=== PATIENT | female | born 2000 | race Caucasian/White ===

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

== ENCOUNTER → 2018-01-06 | Outpatient (CLI) | payer OTHER ==
[2018-01-06 15:10] VITALS: BP 113/73; PULSE 59; RESP 16; TEMP 98; BMI 34.3
--- NOTE | 2018-01-06 15:15 | P.PN ---
Progress Note - Text Progress Note Date: 01/06/18 The patient resents for results of the FNA in her right breast. The FNA was nondiagnostic showing only blood and adipose tissue. The patient states the area of concern has remained area is only tender. The patient has been decreasing her caffeine intake Physical exam: The area that was originally seen in the 9 o'clock position of the right breast does indeed fill slightly smaller and less firm Examination is limited to the right breast Impression: 1. Decreased area of nodularity right breast 2. The patient has stayed away from caffeine and this seems to be making a difference for her related to fibrocystic changes in her breast Plan: 1. Conservative management with repeat examination in 3 months time 2. The patient notices anything of concern she will be seen sooner 3. Continue to abstain from caffeine The following options were discussed with the patient. Option 1. is to continue with conservative management option 2. is attempt biopsy of the area with a core biopsy needle option 3. is operative resection. Risks and benefits of all options are discussed with the patient. I have recommended close surveillance. Cc: Dr. Maile Muro
== END ==
LOC: WWCWWP 14:42
PROVIDERS: ATTEND Surgery
DX: Z53.9 Procedure and treatment not carried out, unspecified reason (principal)

== ENCOUNTER 2018-08-29 13:44 | Emergency (ER) | payer OTHER ==
[2018-08-29 13:48] VITALS: BP 122/76; PULSE 79; RESP 18; TEMP 97.9
--- NOTE | 2018-08-29 14:39 | ED ---
General Adult HPI - General Chief complaint: Recheck/Abnormal Lab/Rx Stated complaint: wants test Time Seen by Provider: 08/29/18 13:49 Source: patient, RN notes reviewed Mode of arrival: ambulatory Limitations: no limitations - History of Present Illness Initial comments: 18-year-old female presents emergency Department requesting test. Patient states she believes she is . She's not had her mental cycle. Patient does have underlying PC last is had spotting for the last 2 months. She does not current a seen EMT/DISPATCHER. Patient was on control but stopped this. Denies any vaginal discharge. Patient denies any prior pregnancies. She states that she has intermittent nausea and intermittent cramping but has no abdominal pain at this time. No dysuria - Related Data Home Medications Medication Instructions Recorded Confirmed No Known Home Medications 08/29/18 08/29/18 Allergies Allergy/AdvReac Type Severity Reaction Status Date / Time No Known Allergies Allergy Verified 08/29/18 13:48 Review of Systems ROS Statement: Those systems with pertinent positive or pertinent negative responses have been documented in the HPI. ROS Other: All systems not noted in ROS Statement are negative. Past Medical History Past Medical History: No Reported History History of Any Multi-Drug Resistant Organisms: None Reported Past Surgical History: No Surgical Hx Reported Past Psychological History: No Psychological Hx Reported Smoking Status: Never smoker Past Alcohol Use History: None Reported Past Drug Use History: None Reported - Past Family History Father Family Medical History: Diabetes Mellitus Mother Family Medical History: No Reported History General Exam Limitations: no limitations General appearance: alert, in no apparent distress Head exam: Present: atraumatic, normocephalic, normal inspection Eye exam: Present: normal appearance, PERRL, EOMI. Absent: scleral icterus, conjunctival injection, periorbital swelling Respiratory exam: Present: normal lung sounds bilaterally. Absent: respiratory distress, wheezes, rales, rhonchi, stridor Cardiovascular Exam: Present: regular rate, normal rhythm, normal heart sounds. Absent: systolic murmur, diastolic murmur, rubs, gallop, clicks GI/Abdominal exam: Present: soft, normal bowel sounds. Absent: distended, tenderness, guarding, rebound, rigid Neurological exam: Present: alert, oriented X3, CN II-XII intact Skin exam: Present: warm, dry, intact, normal color. Absent: rash Course Vital Signs 08/29/18 13:46 Temperature 97.9 F Pulse Rate 79 Respiratory 18 Rate Blood Pressure 122/76 O2 Sat by Pulse 97 Oximetry Medical Decision Making - Medical Decision Making 18-year-old female presented for multiple complaints. Primary complaint want a test. She does have negative test is felt the over symptoms related to a PCOS that she is to follow-up with EMT/DISPATCHER. We discussed that she was on control and symptoms were recommended at that time patient will follow-up with PCP or EMT/DISPATCHER. - Lab Data Lab Results 08/29/18 08/29/18 Range/Units 14:00 14:00 Urine Color Light Yellow Urine Appearance Clear (Clear) Urine pH 7.5 (5.0-8.0) Ur Specific [place] 1.007 (1.001-1.035) Urine Protein Negative (Negative) Urine Glucose (UA) Negative (Negative) Urine Ketones Negative (Negative) Urine Blood Moderate H (Negative) Urine Nitrite Negative (Negative) Urine Bilirubin Negative (Negative) Urine Urobilinogen <2.0 (<2.0) mg/dL Ur Leukocyte Esterase Negative (Negative) Urine RBC 23 H (0-5) /hpf Urine WBC 4 (0-5) /hpf Ur Squamous Epith Cells 2 (0-4) /hpf Amorphous Sediment Rare H (None) /hpf Urine Bacteria Rare H (None) /hpf Urine Mucus Rare H (None) /hpf Urine HCG, Qual Not Detected (Not Detectd) Disposition Clinical Impression: PCOS (polycystic ovarian syndrome), Negative test Disposition: HOME SELF-CARE Condition: Stable Instructions (If sedation given, give patient instructions): Dysfunctional Uterine Bleeding (ED) Additional Instructions: Please return to the Emergency Department if symptoms worsen or any other concerns. Is patient prescribed a controlled substance at d/c from ED?: No Referrals: Stefano Muro DO [Primary Care Provider] - 1-2 days Time of Disposition: 15:14
[2018-08-29 15:03] LABS: Amorphous Sediment,Urine Rare /hpf; Appearance,Urine Clear (Clear); Bilirubin,Urine Negative (Negative); Blood,Urine Moderate (Negative); Color,Urine Light Yellow; Glucose,Urine (UA) Negative (Negative); Ketones,Urine Negative (Negative); Leukocyte Esterase,Urine Negative (Negative); Mucus,Urine Rare /hpf; Nitrite,Urine Negative (Negative); PH, Urine 7.5 (5.0-8.0); Protein,Urine Negative (Negative); RBC,Urine 23 /hpf (0-5); Specific Gravity,Urine 1.007 (1.001-1.035); Squamous Epithelial Cell,Urine 2 /hpf (0-4); Urobilinogen,Urine <2.0 mg/dL (<2.0)
[2018-08-29 15:09] LABS: Bacteria,Urine Rare /hpf
== END 2018-08-29 15:31 | disposition home or self-care (01) ==
LOC: EC 13:44
DX: E28.2 Polycystic ovarian syndrome (principal); Z32.02 Encounter for pregnancy test, result negative; R11.0 Nausea
CPT/HCPCS: 81001; 81025; 99283

== ENCOUNTER → 2020-04-23 | Outpatient (CLI) | payer OTHER | END | disposition home or self-care (01) | LOC: LABWHC1 13:53 | PROVIDERS: ATTEND Obstetrics & Gynecology | DX: O20.0 Threatened abortion (principal) | CPT/HCPCS: 36415; 84702; 86850; 86900; 86901 ==

== ENCOUNTER → 2020-04-24 | Outpatient (CLI) | payer OTHER ==
--- NOTE | 2020-04-24 12:33 | US ---
EXAMINATION TYPE: Transabdominal DATE OF EXAM: 04/24/2020 10:53 AM COMPARISON: NONE CLINICAL HISTORY: 046.91 Bleeding and spotting 1st trimester. Bleeding x 1 day, 1 EXAM PERFORMED: Transvaginal (TV) and Transabdominal (TA) EXAM MEASUREMENTS: GESTATIONAL AGE / DATING Physician Established: Not established yet Dates by LMP: Unknown Dates by First Scan: This is 1st scan Dates by Current Scan for: ( 9 weeks/2 days) EDC: 11/25/2020 MATERNAL ANATOMY Uterus: 12.5 x 4.9 x 6.7cm Right Ovary: 3.2 x 2.0 x 2.3cm Left Ovary: 3.0 x 1.7 x 2.7cm Post CDS / Adnexa: small amount of free fluid Presence of free fluid: yes Presence of corpus luteal cyst: not seen Presence of subchorionic bleed: yes - 1.9 x 0.8 x 2.1cm GESTATION / SURVEY CRL: 2.5cm (9 weeks/2 days) Yolk Sac (normal less than 6mm): 4.0mm Heart Rate: 172 bpm Rhythm: Normal IUP: Viable IUP Date of LMP: Unknown Beta HcG (if available): Not available at time of exam IMPRESSION: 1. Single intrauterine gestation estimated at 9 weeks 2 days gestation based on the crown-rump length . Cardiac activity measures 172 bpm was observed during the study.
== END | disposition home or self-care (01) ==
LOC: RADUSWWP 10:13
PROVIDERS: ATTEND Obstetrics & Gynecology
DX: O46.91 Antepartum hemorrhage, unspecified, first trimester (principal); Z3A.09 9 weeks gestation of pregnancy
CPT/HCPCS: 76801; 76817

== ENCOUNTER 2020-10-23 20:11 | Emergency (ER) | payer OTHER ==
[2020-10-23 20:35] VITALS: RESP 18
[2020-10-23] MEDS ORDERED: SODIUM CHLORIDE 0.9% 500 ML 500 ML IV STA (20:47)
[2020-10-23] MEDS ORDERED: ONDANSETRON 4 MG/2 ML VIAL IVP STA (20:47)
--- NOTE | 2020-10-23 21:23 | ED ---
General Adult HPI - General Chief complaint: Weakness Stated complaint: flu like tiff, 36 weeks Time Seen by Provider: 10/23/20 20:48 Source: patient Mode of arrival: ambulatory - History of Present Illness Initial comments: This patient is a 20-year-old woman presenting to be evaluated for constellation of symptoms is been going on 2 days now. Patient has had some nausea and states she is not tolerating oral intake. She is having some generalized fatigue. She has had some myalgias and she is complaining of low abdominal and pelvic cramping that she states feel like contractions. She is proximally 36 weeks . She is not having any vaginal bleeding or fluid discharge. She notes that there've been decreased movements last night and into today. She states she had gone to the labor and delivery unit and was sent down here out of concerns she may have coronavirus. Patient has not had fever or chills. No chest pain, coughing, dyspnea. She states she had tested negative last week. Onset/Timin -: days(s) Location: abdomen, pelvis Radiation: non-radiation Quality: other (Cramping) Consistency: intermittent Improves with: none Worsens with: none Associated Symptoms: denies other symptoms Treatments Prior to Arrival: none - Related Data Previous Rx's Medication Instructions Recorded Amoxicillin 500 mg PO Q8H #21 capsule 10/23/20 Allergies Allergy/AdvReac Type Severity Reaction Status Date / Time No Known Allergies Allergy Verified 10/23/20 22:38 Review of Systems ROS Statement: Those systems with pertinent positive or pertinent negative responses have been documented in the HPI. ROS Other: All systems not noted in ROS Statement are negative. Constitutional: Reports: weakness. Denies: fever, chills Respiratory: Denies: cough, dyspnea, wheezes Cardiovascular: Denies: chest pain, palpitations, orthopnea, edema, syncope Gastrointestinal: Reports: abdominal pain, nausea, vomiting. Denies: hematemesis, melena, hematochezia Genitourinary: Denies: dysuria, hematuria, discharge, abnormal menses Musculoskeletal: Reports: myalgia. Denies: back pain Skin: Denies: rash Neurological: Denies: headache, weakness, numbness Past Medical History Past Medical History: No Reported History History of Any Multi-Drug Resistant Organisms: None Reported Past Surgical History: No Surgical Hx Reported Past Psychological History: No Psychological Hx Reported Smoking Status: Former smoker Past Alcohol Use History: None Reported Past Drug Use History: None Reported - Past Family History Father Family Medical History: Diabetes Mellitus Mother Family Medical History: No Reported History General Exam General appearance: alert, in no apparent distress Head exam: Present: atraumatic, normocephalic Eye exam: Present: normal appearance. Absent: scleral icterus, conjunctival injection ENT exam: Present: normal oropharynx Respiratory exam: Present: normal lung sounds bilaterally. Absent: respiratory distress, wheezes, rales, rhonchi, stridor Cardiovascular Exam: Present: regular rate, normal rhythm, normal heart sounds. Absent: systolic murmur, diastolic murmur, rubs, gallop GI/Abdominal exam: Present: soft, mass (Palpable fundus without tenderness). Absent: distended, tenderness, guarding, rebound, rigid, pulsatile mass, hernia Extremities exam: Present: normal inspection, normal capillary refill. Absent: pedal edema, calf tenderness Back exam: Present: normal inspection. Absent: CVA tenderness (R), CVA te nderness (L) Neurological exam: Present: alert Skin exam: Present: warm, dry, intact, normal color. Absent: rash Course Vital Signs 10/23/20 10/23/20 10/23/20 20:30 21:49 23:38 Temperature 98.2 F 98.0 F Pulse Rate 68 64 54 L Respiratory 18 18 18 Rate Blood Pressure 115/70 112/68 116/62 O2 Sat by Pulse 98 98 99 Oximetry Medical Decision Making - Lab Data Result diagrams: 10/23/20 21:29 10/23/20 21:29 Lab Results 10/23/20 10/23/20 10/23/20 Range/Units 21:29 21:29 21:29 WBC 10.7 H (3.8-10.6) k/uL RBC 4.03 (3.80-5.40) m/uL Hgb 12.4 (11.4-16.0) gm/dL Hct 36.7 (34.0-46.0) % MCV 91.0 (80.0-100.0) fL MCH 30.8 (25.0-35.0) pg MCHC 33.9 (31.0-37.0) g/dL RDW 12.4 (11.5-15.5) % Plt Count 389 (150-450) k/uL MPV 7.6 Neutrophils % 70 % Lymphocytes % 22 % Monocytes % 5 % Eosinophils % 1 % Basophils % 0 % Neutrophils # 7.5 (1.3-7.7) k/uL Lymphocytes # 2.3 (1.0-4.8) k/uL Monocytes # 0.6 (0-1.0) k/uL Eosinophils # 0.1 (0-0.7) k/uL Basophils # 0.0 (0-0.2) k/uL Sodium 133 L (137-145) mmol/L Potassium 4.2 (3.5-5.1) mmol/L Chloride 106 (98-107) mmol/L Carbon Dioxide 20 L (22-30) mmol/L Anion Gap 7 mmol/L BUN 4 L (7-17) mg/dL Creatinine 0.44 L (0.52-1.04) mg/dL Est GFR (CKD-EPI)AfAm >90 (>60 ml/min/1.73 sqM) Est GFR (CKD-EPI)NonAf >90 (>60 ml/min/1.73 sqM) Glucose 82 (74-99) mg/dL Calcium 9.4 (8.4-10.2) mg/dL Total Bilirubin 0.4 (0.2-1.3) mg/dL AST 22 (14-36) U/L ALT 11 (4-34) U/L Alkaline Phosphatase 182 H (38-126) U/L Total Protein 6.8 (6.3-8.2) g/dL Albumin 3.8 (3.5-5.0) g/dL Urine Color Urine Appearance (Clear) Urine pH (5.0-8.0) Ur Specific [place] (1.001-1.035) Urine Protein (Negative) Urine Glucose (UA) (Negative) Urine Ketones (Negative) Urine Blood (Negative) Urine Nitrite (Negative) Urine Bilirubin (Negative) Urine Urobilinogen (<2.0) mg/dL Ur Leukocyte Esterase (Negative) Urine RBC (0-5) /hpf Urine WBC (0-5) /hpf Ur Squamous Epith Cells (0-4) /hpf Urine Bacteria (None) /hpf Urine Mucus (None) /hpf Coronavirus (PCR) Not Detected (Not Detectd) 10/23/20 Range/Units 21:48 WBC (3.8-10.6) k/uL RBC (3.80-5.40) m/uL Hgb (11.4-16.0) gm/dL Hct (34.0-46.0) % MCV (80.0-100.0) fL MCH (25.0-35.0) pg MCHC (31.0-37.0) g/dL RDW (11.5-15.5) % Plt Count (150-450) k/uL MPV Neutrophils % % Lymphocytes % % Monocytes % % Eosinophils % % Basophils % % Neutrophils # (1.3-7.7) k/uL Lymphocytes # (1.0-4.8) k/uL Monocytes # (0-1.0) k/uL Eosinophils # (0-0.7) k/uL Basophils # (0-0.2) k/uL Sodium (137-145) mmol/L Potassium (3.5-5.1) mmol/L Chloride (98-107) mmol/L Carbon Dioxide (22-30) mmol/L Anion Gap mmol/L BUN (7-17) mg/dL Creatinine (0.52-1.04) mg/dL Est GFR (CKD-EPI)AfAm (>60 ml/min/1.73 sqM) Est GFR (CKD-EPI)NonAf (>60 ml/min/1.73 sqM) Glucose (74-99) mg/dL Calcium (8.4-10.2) mg/dL Total Bilirubin (0.2-1.3) mg/dL AST (14-36) U/L ALT (4-34) U/L Alkaline Phosphatase (38-126) U/L Total Protein (6.3-8.2) g/dL Albumin (3.5-5.0) g/dL Urine Color Light Yellow Urine Appearance Cloudy H (Clear) Urine pH 7.5 (5.0-8.0) Ur Specific [place] 1.008 (1.001-1.035) Urine Protein Negative (Negative) Urine Glucose (UA) Negative (Negative) Urine Ketones 1+ H (Negative) Urine Blood Negative (Negative) Urine Nitrite Negative (Negative) Urine Bilirubin Negative (Negative) Urine Urobilinogen <2.0 (<2.0) mg/dL Ur Leukocyte Esterase Trace H (Negative) Urine RBC <1 (0-5) /hpf Urine WBC 13 H (0-5) /hpf Ur Squamous Epith Cells 8 H (0-4) /hpf Urine Bacteria Occasional H (None) /hpf Urine Mucus Rare H (None) /hpf Coronavirus (PCR) (Not Detectd) Disposition Clinical Impression: Urinary tract infection Disposition: HOME SELF-CARE Condition: Fair Prescriptions: Amoxicillin 500 mg PO Q8H #21 capsule Is patient prescribed a controlled substance at d/c from ED?: No Referrals: Omer Ortega MD [Primary Care Provider] - 1-2 days
[2020-10-23 21:47] LABS: Basophils % (A) 0 %; Eosinophils # (A) 0.1 k/uL (0-0.7); Eosinophils % (A) 1 %; HCT 36.7 % (34.0-46.0); HGB 12.4 gm/dL (11.4-16.0); Lymphocytes # (A) 2.3 k/uL (1.0-4.8); Lymphocytes % (A) 22 %; MCH 30.8 pg (25.0-35.0); MCHC 33.9 g/dL (31.0-37.0); Mean Platelet Volume 7.6; Monocytes # (A) 0.6 k/uL (0-1.0); Monocytes % (A) 5 %; Neutrophils # (A) 7.5 k/uL (1.3-7.7); Neutrophils % (A) 70 %; Platelet Count 389 k/uL (150-450); RBC 4.03 m/uL (3.80-5.40); RDW 12.4 % (11.5-15.5); WBC 10.7 k/uL (3.8-10.6)
[2020-10-23 21:56] LABS: ALT 11 U/L (4-34); AST 22 U/L (14-36); African American GFR (CKD) >90 (>60 ml/min/1.73 sqM); Albumin 3.8 g/dL (3.5-5.0); Alkaline Phosphatase 182 U/L (38-126); Anion Gap 7 mmol/L; Blood Urea Nitrogen 4 mg/dL (7-17); Calcium 9.4 mg/dL (8.4-10.2); Carbon Dioxide 20 mmol/L (22-30); Chloride 106 mmol/L (98-107); Glucose 82 mg/dL (74-99); Non-African American GFR(CKD) >90 (>60 ml/min/1.73 sqM); Potassium 4.2 mmol/L (3.5-5.1); Sodium 133 mmol/L (137-145); Total Bilirubin 0.4 mg/dL (0.2-1.3); Total Protein 6.8 g/dL (6.3-8.2)
[2020-10-23 22:05] LABS: Appearance,Urine Cloudy (Clear); Bacteria,Urine Occasional /hpf; Bilirubin,Urine Negative (Negative); Blood,Urine Negative (Negative); Color,Urine Light Yellow; Glucose,Urine (UA) Negative (Negative); Ketones,Urine 1+ (Negative); Leukocyte Esterase,Urine Trace (Negative); Mucus,Urine Rare /hpf; Nitrite,Urine Negative (Negative); PH, Urine 7.5 (5.0-8.0); Protein,Urine Negative (Negative); RBC,Urine <1 /hpf (0-5); Specific Gravity,Urine 1.008 (1.001-1.035); Squamous Epithelial Cell,Urine 8 /hpf (0-4); Urobilinogen,Urine <2.0 mg/dL (<2.0); WBC,Urine 13 /hpf (0-5)
[2020-10-23 23:39] VITALS: BP 116/62; PULSE 54; TEMP 98
[2020-10-23] MEDS ORDERED: CEPHALEXIN 500 MG CAP PO STA (23:55)
== END 2020-10-24 00:22 | disposition home or self-care (01) ==
LOC: EC 20:11
DX: O23.43 Unspecified infection of urinary tract in pregnancy, third trimester (principal); O99.891 Other specified diseases and conditions complicating pregnancy; R53.83 Other fatigue; R11.0 Nausea; R53.1 Weakness; Z87.891 Personal history of nicotine dependence; Z3A.36 36 weeks gestation of pregnancy; Z20.822 Contact with and (suspected) exposure to COVID-19
CPT/HCPCS: 36415; 80053; 85025; 81001; 87635; 99284; 96374; 96360; 96361; J2405

== ENCOUNTER 2020-10-24 00:17 | Outpatient (CLI) | payer OTHER ==
[2020-10-24] MEDS ORDERED: LACTATED RINGERS 1,000 ML IV SCH (01:10)
[2020-10-24 02:25] VITALS: BP 107/63; PULSE 53; RESP 18; TEMP 97.3
--- NOTE | 2020-10-24 08:14 | P.MSEPDOC ---
Presenting Problems - Arrival Data Date of Arrival on Unit: 10/24/20 Time of Arrival on Unit: 01:17 Mode of Transport: Wheelchair - Complaint OB-Reason for Admission/Chief Complaint: Decreased Movement, Acute Nausea/Vomiting Comment: abdominal cramping. Sent from ER for evaluation after being treated for a UTI in ER. Medical History - Information : 1 Para: 0 Term: 0 : 0 Abortions: Spontaneous or Elective: 0 Number of Living Children: 0 - Gestational Age Gestational Age by JAYLEEN (wks/days): 35 Weeks and 6 Days - History Comment: Former smoker, pt quit when she found out she was Review of Systems - Review of Systems Constitutional: No problems Breast: No problems ENT: No problems Cardiovascular: No problems Respiratory: No problems Gastrointestinal: No problems Genitourinary: No problems Musculoskeletal: No problems Neurological: No problems Skin: No problems Vital Signs - Temperature Temperature: 97.3 F Temperature Source: Temporal Artery Scan - Pulse Right Pulse Rate: 53 Pulse Assessment Method: Automatic Cuff - Respirations Respiratory Rate: 18 Oxygen Delivery Method: Room Air O2 Sat by Pulse Oximetry: 99 - Blood Pressure Right Arm Blood Pressure: 107/63 Blood Pressure Mean: 77 Blood Pressure Source: Automatic Cuff Medical Screen Scoring - Cervical Exam Dilation (cm): 2 Station: -3 Membranes: Intact - Uterine Contractions Frequency From (mins): 1 Frequency To (mins): 4 Duration From (seconds): 50 Duration To (seconds): 90 Intensity: Mild Resting: Soft to palpation - Assessment - Baby A Baseline FHR: 120 Heart Rate - NICHD Category: Category I (Normal) Physician Notification - Physician Notified Physician Notified Date: 10/24/20 Physician Notified Time: 00:49 Physician: Kaylah Clancy Order Received: Yes - Notification Comment Comment: RN spoke with Dr. Clancy regarding patient's c/o NV since yesterday, DFM x2 days, and cramping. Pt was sent from ER for evaluation after being treated for a UTI in ER. Pt is having traceable contractions Q1-4mins, active FM per pt and audibly per RN. Pt states she does not feel the contractions when they are tracing on TOCO. Reactive NST. Cervix dilated to 2/thick/high. Dr. Clancy gave RN orders for 1L bolus of fluid, if cervix is unchanged the pt may DC home. Pt to continue anbx as directed per ER physician, and follow up with Dr. Colon. Maternal Triage Index - Maternal Triage Index Presenting for scheduled procedure w/no complaint: No - Stat/Priority 1 Stat Priority 1: No - Urgent/Priority 2 Urgent Priority 2: Yes Provider Notified: Kaylah Clancy Provider Notified Time: 00:49 Criteria Met for Priority 2: C/o DFM x2days with cramping Disposition - Disposition OB Disposition: Discharge to home Discharge Date: 10/24/20 Discharge Time: 01:45 I agree with the RN Medical Screening Exam: Yes Case reviewed; plan agreed upon as documented in EMR&OBIX.: Yes Diagnosis: URINARY TRACT INFECTION, SITE NOT SPECIFIED Additional Diagnoses: Dehydration
== END 2020-10-24 01:45 | disposition home or self-care (01) ==
LOC: FBPOP 00:17
PROVIDERS: ATTEND Obstetrics & Gynecology
DX: O23.43 Unspecified infection of urinary tract in pregnancy, third trimester (principal); Z3A.35 35 weeks gestation of pregnancy
CPT/HCPCS: 59025; 96360; G0463; 99213

== ENCOUNTER 2020-11-18 06:00 | Inpatient (IN) | payer OTHER ==
[2020-11-18] MEDS ORDERED: OXYTOCIN 30 UNITS/500 ML NS 30 UNIT in SALINE 1 500ML.BAG IV SCH ×2 (06:15→20:46)
[2020-11-18] MEDS ORDERED: METHYLERGONOVINE 0.2 MG/ML 1 ML AMP IM PRN (06:15)
[2020-11-18] MEDS ORDERED: LIDOCAINE 0.5% (PF) 5 MG/ML (50 ML SDV) SQ PRN (06:15)
[2020-11-18] MEDS ORDERED: CARBOPROST TROMETHAMINE 250 MCG/ML 1 ML AMP IM PRN (06:15)
[2020-11-18] MEDS ORDERED: TERBUTALINE 1 MG/ML VIAL SQ PRN (06:15)
[2020-11-18] MEDS ORDERED: OXYTOCIN 10 UNIT/ML 1 ML VIAL IM PRN (06:15)
[2020-11-18] MEDS: LACTATED RINGERS 1,000 ML IV SCH ×3 (06:23→16:11)
--- NOTE | 2020-11-18 06:25 | P.HPOB ---
History of Present Illness H&P Date: 11/18/20 Chief Complaint: Requested induction of labor This patient is a pleasant 20-year-old 1 para 0 female estimated date of confinement 11/21/2020 estimated gestational age 39-4/7 weeks who presents to labor and delivery for requested induction of labor. Patient's care is uncomplicated with the exception of marijuana use in the first trimester. Patient's uncomfortable at this time is requesting induction of labor. Review of Systems Genitourinary: Reports Menstruation: Reports amenorrhea Past Medical History Past Medical History: No Reported History History of Any Multi-Drug Resistant Organisms: None Reported Past Surgical History: No Surgical Hx Reported Past Psychological History: No Psychological Hx Reported Smoking Status: Former smoker Past Alcohol Use History: None Reported Past Drug Use History: Marijuana - Past Family History Father Family Medical History: Diabetes Mellitus Mother Family Medical History: No Reported History Medications and Allergies Home Medications Medication Instructions Recorded Confirmed Type Pnv,Calcium 72/Iron/Folic Acid 1 tab PO DAILY 10/24/20 11/18/20 History [ Plus Tablet] Allergies Allergy/AdvReac Type Severity Reaction Status Date / Time No Known Allergies Allergy Verified 10/24/20 00:29 Exam Intake and Output 11/17/20 11/17/20 11/18/20 14:59 22:59 06:59 Other: Weight 89.811 kg - OBG Physical Exam Abdomen: bowel sounds normal, no diffuse tenderness, no bruit present, no guarding noted, no hepatomegaly, no splenomegaly, no mass Vulva: both: normal Vagina: normal moisture, no discharge Cervix: no lesion (Cervix in the office was 2 cm and soft.), no discharge Uterus: enlarged (Fundal height was 38 cm) Results blood work shows she is O positive, rubella nonimmune, RPR is nonreactive hepatitis B was negative HIV was nonreactive, Glucola was normal, group B strep was positive, most recent ultrasound showed baby to be 5 lbs. 13 oz. Assessment and Plan Assessment: This is a pleasant 20-year-old 1 para 0 female 39-4/7 weeks gestation admitted to labor and delivery for requested induction of labor. She has a positive group B strep culture. Plan is antibiotic prophylaxis and Pitocin induction of labor. Anticipate vaginal delivery. (1) 39 weeks gestation of Current Visit: Yes Status: Acute Code(s): Z3A.39 - 39 WEEKS GESTATION OF SNOMED Code(s): 15775385 (2) Group B streptococcal carriage complicating Current Visit: Yes Status: Acute Code(s): O99.820 - STREPTOCOCCUS B CARRIER STATE COMPLICATING SNOMED Code(s): 624122983827179 (3) Elective induction of labor planned Current Visit: Yes Status: Acute Code(s): GUH6827 - SNOMED Code(s): 605743688
[2020-11-18] MEDS ORDERED: AMPICILLIN 2,000 MG in SODIUM CHLORIDE 0.9% 100 ML IVPB ONE (06:30)
[2020-11-18 06:43] LABS: Basophils % (A) 0 %; Eosinophils # (A) 0.1 k/uL (0-0.7); Eosinophils % (A) 1 %; HGB 11.6 gm/dL (11.4-16.0); Lymphocytes # (A) 2.7 k/uL (1.0-4.8); Lymphocytes % (A) 27 %; MCH 30.9 pg (25.0-35.0); MCHC 34.1 g/dL (31.0-37.0); MCV 90.6 fL (80.0-100.0); Mean Platelet Volume 6.9; Monocytes # (A) 0.4 k/uL (0-1.0); Monocytes % (A) 4 %; Neutrophils # (A) 6.5 k/uL (1.3-7.7); Neutrophils % (A) 65 %; Platelet Count 477 k/uL (150-450); RBC 3.75 m/uL (3.80-5.40); RDW 12.5 % (11.5-15.5)
[2020-11-18] MEDS: AMPICILLIN 1,000 MG in SODIUM CHLORIDE 0.9% 50 ML IVPB SCH ×3 (11:30→19:17)
[2020-11-18] MEDS ORDERED: BUTORPHANOL 1 MG/ML 1 ML VIAL IV PRN (11:49)
[2020-11-18] MEDS ORDERED: SODIUM CHLORIDE 0.9% 100 ML BAG ONE (12:30)
[2020-11-18] MEDS ORDERED: ROPIVACAINE 5MG/ML 20ML VIAL ONE (12:30)
[2020-11-18] MEDS ORDERED: fentaNYL (PF) 50 MCG/ML 5 ML AMP ONE (12:30)
--- NOTE | 2020-11-18 19:49 | P.PROBDLV ---
Vaginal Delivery Note - . Vaginal Delivery Note: Normal vaginal delivery viable male Apgars 8 and 9 delivery time is 1930 hrs. Please see dictated H&P for intimate details of this patient's admission. Brief summary this pleasant 20-year-old 1 para 0 female 39-4/7 weeks gestation who is admitted to labor and delivery for requested induction of labor. On admission patient is 2 cm dilated has artificial rupture membranes for clear fluid. Labor is induced with Pitocin per protocol patient is given antibiotics for positive group B strep culture. Labor progresses and she does get an epidural for pain control. Patient gets to complete pushes approximately 3 times. Patient pushes the head to the perineum and the posterior perineum is supported. We have controlled delivery of the infant's head over the intact perineum. Mouth and nares are bulb suctioned. There is no evidence of a nuchal cord. With gentle downward traction we then have deliver the anterior and posterior shoulder and rest this infant's body. This is a vigorous viable male infant Apgars are 8 and 9 delivery time is 1930 hrs. After delivery of the the is late on the mother's abdomen. The umbilical cord is allowed to quit pulsating. It is then doubly clamped and cut. The placenta is then spontaneously delivered intact. Inspection of the perineum shows a small laceration of left lower labia. Is repaired with 3-0 Vicryl. Estimated blood loss is 2200 mL. There are no complications. All counts correct 3. and mother stable delivery room.
[2020-11-18] MEDS ORDERED: LANOLIN CREAM 5 GM TUBE TOPICAL PRN (20:46)
[2020-11-18] MEDS ORDERED: SIMETHICONE 80 MG CHEWABLE PO PRN (20:46)
[2020-11-18] MEDS ORDERED: diphenhydrAMINE 50 MG/ML 1 ML VIAL IVP PRN (20:46)
[2020-11-18] MEDS ORDERED: diphenhydrAMINE 25 MG CAP PO PRN (20:46)
[2020-11-18] MEDS ORDERED: HYDROCORTISONE 2.5% RECTAL CREAM 30 GM TUBE RECTAL PRN (20:46)
[2020-11-18] MEDS ORDERED: MEASLES-MUMPS-RUBELLA VACC/PF 12,500 UNIT/0.5 ML VIAL SQ ONE (20:46)
[2020-11-18] MEDS ORDERED: bisacodyL 10 MG SUPP RECTAL PRN (20:46)
[2020-11-18] MEDS ORDERED: IBUPROFEN 600 MG TAB PO PRN (20:46)
[2020-11-18] MEDS ORDERED: BENZOCAINE/MENTHOL SPRAY 1 GM/SPRAY AEROSOL TOPICAL PRN (20:46)
[2020-11-18] MEDS ORDERED: ZOLPIDEM 5 MG TAB PO PRN (20:46)
[2020-11-18] MEDS ORDERED: ACETAMINOPHEN TAB 325 MG TAB PO PRN (20:46)
[2020-11-18] MEDS: SENNOSIDES-DOCUSATE SODIUM 1 EACH TAB PO SCH (21:36)
--- NOTE | 2020-11-19 06:51 | P.PNOBGVD ---
Subjective - Subjective Patient reports: Reports appetite normal, Reports voiding normally, Reports pain well controlled, Reports ambulating normally : doing well Objective - Latest Vital Signs Latest vital signs: Vital Signs Temp Pulse Resp BP 11/19/20 04:00 98.2 F 51 L 16 107/64 11/19/20 00:00 98.4 F 88 16 106/69 11/18/20 21:50 96.7 F L 53 L 16 105/69 11/18/20 21:20 60 16 102/59 11/18/20 21:00 54 L 16 107/67 11/18/20 20:50 127 H 16 116/59 11/18/20 20:31 53 L 16 107/58 11/18/20 20:16 49 L 16 103/57 11/18/20 20:05 80 16 112/61 11/18/20 20:01 72 16 121/55 11/18/20 19:50 51 L 16 115/57 Intake and Output 11/18/20 11/18/20 11/19/20 14:59 22:59 06:59 Output Total 200 Balance -200 Output: Estimated Blood Loss 200 Other: # Voids 1 1 - Exam Lungs: bilateral: normal Chest: Normal S1, Normal S2 Extremities: Present: normal Abdomen: Present: normal appearance, soft Uterus: Present: normal, firm Assessment and Plan Assessment: day #1. Patient is resting without complaints. Vital signs are stable she's afebrile uterus is firm nontender. Patient wishes to go home later today. My impression is a normal course. Plan is to continue routine care discharge home if she wishes later today. (1) 39 weeks gestation of Current Visit: Yes Status: Acute Code(s): Z3A.39 - 39 WEEKS GESTATION OF SNOMED Code(s): 78460753 (2) Group B streptococcal carriage complicating Current Visit: Yes Status: Acute Code(s): O99.820 - STREPTOCOCCUS B CARRIER STATE COMPLICATING SNOMED Code(s): 289902527440671 (3) Elective induction of labor planned Current Visit: Yes Status: Acute Code(s): BAF0718 - SNOMED Code(s): 469034442
--- NOTE | 2020-11-19 06:55 | P.DS ---
Providers Date of admission: 11/18/20 06:00 Expected date of discharge: 11/19/20 Attending physician: Julio Colon Primary care physician: Stated None - Discharge Diagnosis(es) (1) 39 weeks gestation of Current Visit: Yes Status: Acute (2) Group B streptococcal carriage complicating Current Visit: Yes Status: Acute (3) Elective induction of labor planned Current Visit: Yes Status: Acute Hospital Course: Please see dictated H&P for intimate details of this patient's admission. Brief summary this is a pleasant 20-year-old 1 para 0 female 39-4/7 weeks gestation admitted to labor and delivery for elective induction of labor. Patient is admitted she is uncomplicated induction of labor was on have a vaginal delivery viable male infant. Please see dictated delivery note. day #1 patient without complaints wishes to go home. Patient's felt be stable for discharge home follow up with me in 6 weeks. Procedures: Induction of labor and normal vaginal delivery. Patient Condition at Discharge: Good Plan - Discharge Summary New Discharge Prescriptions: New Ibuprofen [Motrin] 600 mg PO Q6HR PRN #30 tab PRN Reason: Pain No Action Pnv,Calcium 72/Iron/Folic Acid [ Plus Tablet] 1 tab PO DAILY Discharge Medication List Pnv,Calcium 72/Iron/Folic Acid [ Plus Tablet] 1 tab PO DAILY 10/24/20 [History] Ibuprofen [Motrin] 600 mg PO Q6HR PRN #30 tab 11/19/20 [Rx] Follow up Appointment(s)/Referral(s): Julio Colon MD [STAFF PHYSICIAN] - 6 Weeks Patient Instructions/Handouts: Vaginal Delivery (DC) Activity/Diet/Wound Care/Special Instructions: No intercourse or anything per vagina for 6 weeks. Please call if any fever, chills, excessive vaginal bleeding, and/or abdominal pain. Discharge Disposition: HOME SELF-CARE
[2020-11-19] MEDS: SENNOSIDES-DOCUSATE SODIUM 1 EACH TAB PO SCH ×2 (10:47→23:55)
[2020-11-19 17:00] VITALS: BP 112/68; PULSE 84; RESP 16; TEMP 97.7
== END 2020-11-19 22:50 | disposition home or self-care (01) | DRG 807 ==
LOC: 4FBP 06:00
PROVIDERS: ADMIT Obstetrics & Gynecology; ATTEND Obstetrics & Gynecology
PROC: 10E0XZZ Delivery of Products of Conception, External Approach (ICD-10-PCS; principal; 2020-11-18)
PROC: 10907ZC Drainage of Amniotic Fluid, Therapeutic from Products of Conception, Via Natural or Artificial Opening (ICD-10-PCS; 2020-11-18)
PROC: 3E033VJ Introduction of Other Hormone into Peripheral Vein, Percutaneous Approach (ICD-10-PCS; 2020-11-18)
PROC: 0HQ9XZZ Repair Perineum Skin, External Approach (ICD-10-PCS; 2020-11-18)
DX: O99.824 Streptococcus B carrier state complicating childbirth (principal); Z37.0 Single live birth; Z3A.39 39 weeks gestation of pregnancy; Z83.3 Family history of diabetes mellitus; Z87.891 Personal history of nicotine dependence; O70.0 First degree perineal laceration during delivery
CPT/HCPCS: 85025; 86850; 86900; 86901; 90707

== ENCOUNTER 2021-01-24 14:58 | Emergency (ER) | payer OTHER ==
[2021-01-24 15:13] VITALS: BP 107/65; PULSE 74; RESP 20; TEMP 97.3
--- NOTE | 2021-01-24 15:50 | ED ---
General Adult HPI - General Chief complaint: Skin/Abscess/Foreign Body Stated complaint: Rash-online check in Time Seen by Provider: 01/24/21 15:19 Source: patient Mode of arrival: ambulatory Limitations: no limitations - History of Present Illness Initial comments: 20-year-old female presents to the emergency room for a chief complaint of rash. Patient states she has a rash on her arms and abdomen. States it started yesterday. Patient states it is itchy. States multiple people at work have this. 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 - Related Data Home Medications Medication Instructions Recorded Confirmed Pnv,Calcium 72/Iron/Folic Acid 1 tab PO DAILY 10/24/20 11/18/20 [ Plus Tablet] Previous Rx's Medication Instructions Recorded Ibuprofen [Motrin] 600 mg PO Q6HR PRN #30 tab 11/19/20 Permethrin 5% Cream [Elimite] 1 applic TOPICAL ONCE #60 gm 01/24/21 Allergies Allergy/AdvReac Type Severity Reaction Status Date / Time No Known Allergies Allergy Verified 01/24/21 15:13 Review of Systems ROS Statement: Those systems with pertinent positive or pertinent negative responses have been documented in the HPI. ROS Other: All systems not noted in ROS Statement are negative. Past Medical History Past Medical History: No Reported History Additional Past Medical History / Comment(s): Scoliosis, PCOS, occasional migraines History of Any Multi-Drug Resistant Organisms: None Reported Past Surgical History: No Surgical Hx Reported Additional Past Surgical History / Comment(s): [place] teeth removal Past Anesthesia/Blood Transfusion Reactions: No Reported Reaction Past Psychological History: No Psychological Hx Reported Smoking Status: Former smoker Past Alcohol Use History: None Reported Past Drug Use History: Marijuana - Past Family History Father Family Medical History: Diabetes Mellitus Mother Family Medical History: No Reported History General Exam Limitations: no limitations General appearance: alert, in no apparent distress Head exam: Present: atraumatic Eye exam: Present: normal appearance, PERRL, EOMI. Absent: scleral icterus, conjunctival injection ENT exam: Present: normal exam, mucous membranes moist Neck exam: Present: normal inspection, full ROM. Absent: tenderness Respiratory exam: Present: normal lung sounds bilaterally. Absent: respiratory distress, wheezes Cardiovascular Exam: Present: regular rate, normal rhythm, normal heart sounds GI/Abdominal exam: Present: soft, normal bowel sounds. Absent: distended, tenderness Skin exam: Present: rash (Erythematous macular rash noted to the anterior forearm is more concentrated in the wrists and elbows flexor surfaces. Also noted on the abdomen.) Course Vital Signs 01/24/21 15:11 Temperature 97.3 F L Pulse Rate 74 Respiratory 20 Rate Blood Pressure 107/65 O2 Sat by Pulse 100 Oximetry Medical Decision Making - Medical Decision Making Patient will be treated for scabies. Will follow up with her primary care doctor. Will return for any worsening symptoms. Disposition Clinical Impression: Rash Disposition: HOME SELF-CARE Condition: Good Instructions (If sedation given, give patient instructions): Scabies (ED), Acute Rash (ED) Additional Instructions: Please use cream as directed. Follow-up with your doctor. Return to the emergency room for any worsening symptoms. Prescriptions: Permethrin 5% Cream [Elimite] 1 applic TOPICAL ONCE #60 gm Is patient prescribed a controlled substance at d/c from ED?: No Referrals: Omer Ortega MD [Primary Care Provider] - 1-2 days Time of Disposition: 15:40
== END 2021-01-24 15:40 | disposition home or self-care (01) ==
LOC: EC 14:58
DX: R21 Rash and other nonspecific skin eruption (principal); Z87.891 Personal history of nicotine dependence
CPT/HCPCS: 99282

== ENCOUNTER 2021-05-15 23:07 | Emergency (ER) | payer OTHER ==
[2021-05-15] MEDS ORDERED: ONDANSETRON 4 MG/2 ML VIAL IVP STA (23:23)
[2021-05-15] MEDS ORDERED: SODIUM CHLORIDE 0.9% 1,000 ML IV STA (23:23)
[2021-05-15] MEDS ORDERED: MORPHINE SULFATE 4 MG/ML SYRINGE IV STA (23:23)
[2021-05-15] MEDS ORDERED: IBUPROFEN 800 MG TAB PO STA (23:24)
[2021-05-15] MEDS ORDERED: ACETAMINOPHEN TAB 500 MG TAB PO STA (23:24)
--- NOTE | 2021-05-15 23:25 | ED ---
Abdominal Pain HPI - General Chief Complaint: Abdominal Pain Stated Complaint: abdominal pain, dizziness Time Seen by Provider: 05/15/21 23:23 Source: patient, family, RN notes reviewed, old records reviewed Mode of arrival: ambulatory Limitations: no limitations - History of Present Illness Initial Comments: This is a 20-year-old female to the emergency department today. Patient really presents today for evaluation regards to nausea vomiting diarrhea abdominal pain. Patient does present with fever today. Does not think she has coronavirus and she has no exposure. No rashes no travel history no other known sick contacts. Medical history no surgical history MD Complaint: abdominal pain, other (Nausea vomiting and diarrhea) -: days(s) Location: diffuse Radiation: none Migration to: no migration Severity: moderate Severity scale (1-10): 4 Quality: cramping, stabbing, aching Consistency: constant Improves With: nothing Worsens With: eating, bowel movement, vomiting, movement Associated Symptoms: nausea, vomiting, diarrhea, anorexia Treatments Prior to Arrival: other (none) - Related Data Previous Rx's Medication Instructions Recorded Permethrin 5% Cream [Elimite] 1 applic TOPICAL ONCE #60 gm 01/24/21 Allergies Allergy/AdvReac Type Severity Reaction Status Date / Time No Known Allergies Allergy Verified 05/15/21 23:13 Review of Systems ROS Statement: Those systems with pertinent positive or pertinent negative responses have been documented in the HPI. ROS Other: All systems not noted in ROS Statement are negative. Past Medical History Past Medical History: Asthma Additional Past Medical History / Comment(s): Scoliosis, PCOS, occasional migraines History of Any Multi-Drug Resistant Organisms: None Reported Past Surgical History: No Surgical Hx Reported Additional Past Surgical History / Comment(s): [place] teeth removal Past Anesthesia/Blood Transfusion Reactions: No Reported Reaction Past Psychological History: No Psychological Hx Reported Smoking Status: Former smoker Past Alcohol Use History: None Reported Past Drug Use History: Marijuana - Past Family History Father Family Medical History: Diabetes Mellitus Mother Family Medical History: No Reported History General Exam Limitations: no limitations General appearance: alert, in no apparent distress Head exam: Present: atraumatic, normocephalic, normal inspection Eye exam: Present: normal appearance, PERRL, EOMI. Absent: scleral icterus, conjunctival injection, periorbital swelling ENT exam: Present: normal exam, mucous membranes moist Neck exam: Present: normal inspection. Absent: tenderness, meningismus, lymphadenopathy Respiratory exam: Present: normal lung sounds bilaterally. Absent: respiratory distress, wheezes, rales, rhonchi, stridor Cardiovascular Exam: Present: normal rhythm, tachycardia, normal heart sounds. Absent: systolic murmur, diastolic murmur, rubs, gallop, clicks GI/Abdominal exam: Present: soft, tenderness, guarding, normal bowel sounds. Absent: distended, rebound, rigid Extremities exam: Present: normal inspection, full ROM, normal capillary refill. Absent: tenderness, pedal edema, joint swelling, calf tenderness Back exam: Present: normal inspection Neurological exam: Present: alert, oriented X3, CN II-XII intact Psychiatric exam: Present: normal affect, normal mood Skin exam: Present: warm, dry, intact, normal color. Absent: rash Course Vital Signs 05/15/21 23:09 Temperature 102 F H Pulse Rate 127 H Respiratory 24 Rate Blood Pressure 109/66 O2 Sat by Pulse 99 Oximetry - Reevaluation(s) Reevaluation #1: 05/16/21 02:04 Medical record is reviewed Reevaluation #2: 05/16/21 02:04 Patient symptoms are mildly improved here in the ER will she states she still feels Reevaluation #3: 05/16/21 02:04 Patient informed results and questions answered Reevaluation #4: 05/16/21 02:04 After second round of medication patient patient feels improved Medical Decision Making - Medical Decision Making 20 female DF for evaluation patient Dese for evaluation of abdominal pain with fever. Patient denies possibility of coronavirus, symptoms are improved CT abdomen and pelvis is negative and patient can be discharged home - Lab Data Result diagrams: 05/15/21 23:40 05/15/21 23:40 Lab Results 05/15/21 05/15/21 05/15/21 Range/Units 23:33 23:40 23:40 WBC 7.5 (3.8-10.6) k/uL RBC 4.69 (3.80-5.40) m/uL Hgb 13.5 (11.4-16.0) gm/dL Hct 41.0 (34.0-46.0) % MCV 87.5 (80.0-100.0) fL MCH 28.7 (25.0-35.0) pg MCHC 32.8 (31.0-37.0) g/dL RDW 13.1 (11.5-15.5) % Plt Count 240 (150-450) k/uL MPV 7.5 Neutrophils % 77 % Lymphocytes % 13 % Monocytes % 6 % Eosinophils % 1 % Basophils % 1 % Neutrophils # 5.8 (1.3-7.7) k/uL Lymphocytes # 1.0 (1.0-4.8) k/uL Monocytes # 0.4 (0-1.0) k/uL Eosinophils # 0.1 (0-0.7) k/uL Basophils # 0.0 (0-0.2) k/uL Sodium (137-145) mmol/L Potassium (3.5-5.1) mmol/L Chloride (98-107) mmol/L Carbon Dioxide (22-30) mmol/L Anion Gap mmol/L BUN (7-17) mg/dL Creatinine (0.52-1.04) mg/dL Est GFR (CKD-EPI)AfAm (>60 ml/min/1.73 sqM) Est GFR (CKD-EPI)NonAf (>60 ml/min/1.73 sqM) Glucose (74-99) mg/dL Calcium (8.4-10.2) mg/dL Total Bilirubin (0.2-1.3) mg/dL AST (14-36) U/L ALT (4-34) U/L Alkaline Phosphatase (38-126) U/L Total Protein (6.3-8.2) g/dL Albumin (3.5-5.0) g/dL Amylase (30-110) U/L Lipase (23-300) U/L Urine Color Yellow Urine Appearance Cloudy H (Clear) Urine pH 6.0 (5.0-8.0) Ur Specific [place] 1.014 (1.001-1.035) Urine Protein Negative (Negative) Urine Glucose (UA) Negative (Negative) Urine Ketones Negative (Negative) Urine Blood Trace H (Negative) Urine Nitrite Negative (Negative) Urine Bilirubin Negative (Negative) Urine Urobilinogen <2.0 (<2.0) mg/dL Ur Leukocyte Esterase Trace H (Negative) Urine RBC 3 (0-5) /hpf Urine WBC 15 H (0-5) /hpf Ur Squamous Epith Cells 6 H (0-4) /hpf Amorphous Sediment Rare H (None) /hpf Urine Bacteria Few H (None) /hpf Urine Mucus Rare H (None) /hpf Urine HCG, Qual Not Detected (Not Detectd) 05/15/21 Range/Units 23:40 WBC (3.8-10.6) k/uL RBC (3.80-5.40) m/uL Hgb (11.4-16.0) gm/dL Hct (34.0-46.0) % MCV (80.0-100.0) fL MCH (25.0-35.0) pg MCHC (31.0-37.0) g/dL RDW (11.5-15.5) % Plt Count (150-450) k/uL MPV Neutrophils % % Lymphocytes % % Monocytes % % Eosinophils % % Basophils % % Neutrophils # (1.3-7.7) k/uL Lymphocytes # (1.0-4.8) k/uL Monocytes # (0-1.0) k/uL Eosinophils # (0-0.7) k/uL Basophils # (0-0.2) k/uL Sodium 137 (137-145) mmol/L Potassium 3.9 (3.5-5.1) mmol/L Chloride 102 (98-107) mmol/L Carbon Dioxide 28 (22-30) mmol/L Anion Gap 7 mmol/L BUN 8 (7-17) mg/dL Creatinine 0.88 (0.52-1.04) mg/dL Est GFR (CKD-EPI)AfAm >90 (>60 ml/min/1.73 sqM) Est GFR (CKD-EPI)NonAf >90 (>60 ml/min/1.73 sqM) Glucose 100 H (74-99) mg/dL Calcium 8.9 (8.4-10.2) mg/dL Total Bilirubin 0.4 (0.2-1.3) mg/dL AST 41 H (14-36) U/L ALT 25 (4-34) U/L Alkaline Phosphatase 80 (38-126) U/L Total Protein 7.2 (6.3-8.2) g/dL Albumin 4.3 (3.5-5.0) g/dL Amylase 44 (30-110) U/L Lipase 45 (23-300) U/L Urine Color Urine Appearance (Clear) Urine pH (5.0-8.0) Ur Specific [place] (1.001-1.035) Urine Protein (Negative) Urine Glucose (UA) (Negative) Urine Ketones (Negative) Urine Blood (Negative) Urine Nitrite (Negative) Urine Bilirubin (Negative) Urine Urobilinogen (<2.0) mg/dL Ur Leukocyte Esterase (Negative) Urine RBC (0-5) /hpf Urine WBC (0-5) /hpf Ur Squamous Epith Cells (0-4) /hpf Amorphous Sediment (None) /hpf Urine Bacteria (None) /hpf Urine Mucus (None) /hpf Urine HCG, Qual (Not Detectd) - Radiology Data Radiology results: report reviewed (CT abdomen and pelvis is negative for acute disease), image reviewed Disposition Clinical Impression: Abdominal pain, Gastroenteritis, Nausea & vomiting, Diarrhea, Fever Disposition: HOME SELF-CARE Condition: Good Instructions (If sedation given, give patient instructions): Abdominal Pain (ED), Fever in Adults (ED), Gastroenteritis (ED) Is patient prescribed a controlled substance at d/c from ED?: No Referrals: Omer Ortega MD [Primary Care Provider] - 1-2 days
[2021-05-16 00:03] LABS: ALT 25 U/L (4-34); AST 41 U/L (14-36); African American GFR (CKD) >90 (>60 ml/min/1.73 sqM); Albumin 4.3 g/dL (3.5-5.0); Alkaline Phosphatase 80 U/L (38-126); Amylase 44 U/L (30-110); Anion Gap 7 mmol/L; Blood Urea Nitrogen 8 mg/dL (7-17); Calcium 8.9 mg/dL (8.4-10.2); Carbon Dioxide 28 mmol/L (22-30); Chloride 102 mmol/L (98-107); Glucose 100 mg/dL (74-99); Lipase 45 U/L (23-300); Non-African American GFR(CKD) >90 (>60 ml/min/1.73 sqM); Potassium 3.9 mmol/L (3.5-5.1); Sodium 137 mmol/L (137-145); Total Bilirubin 0.4 mg/dL (0.2-1.3); Total Protein 7.2 g/dL (6.3-8.2)
[2021-05-16 00:19] LABS: Basophils % (A) 1 %; Eosinophils # (A) 0.1 k/uL (0-0.7); Eosinophils % (A) 1 %; HGB 13.5 gm/dL (11.4-16.0); Lymphocytes % (A) 13 %; MCH 28.7 pg (25.0-35.0); MCHC 32.8 g/dL (31.0-37.0); MCV 87.5 fL (80.0-100.0); Mean Platelet Volume 7.5; Monocytes # (A) 0.4 k/uL (0-1.0); Monocytes % (A) 6 %; Neutrophils # (A) 5.8 k/uL (1.3-7.7); Neutrophils % (A) 77 %; Platelet Count 240 k/uL (150-450); RBC 4.69 m/uL (3.80-5.40); RDW 13.1 % (11.5-15.5); WBC 7.5 k/uL (3.8-10.6)
[2021-05-16 00:31] LABS: Amorphous Sediment,Urine Rare /hpf; Appearance,Urine Cloudy (Clear); Bacteria,Urine Few /hpf; Bilirubin,Urine Negative (Negative); Blood,Urine Trace (Negative); Color,Urine Yellow; Glucose,Urine (UA) Negative (Negative); Ketones,Urine Negative (Negative); Leukocyte Esterase,Urine Trace (Negative); Mucus,Urine Rare /hpf; Nitrite,Urine Negative (Negative); Protein,Urine Negative (Negative); RBC,Urine 3 /hpf (0-5); Specific Gravity,Urine 1.014 (1.001-1.035); Squamous Epithelial Cell,Urine 6 /hpf (0-4); Urobilinogen,Urine <2.0 mg/dL (<2.0); WBC,Urine 15 /hpf (0-5)
--- NOTE | 2021-05-16 01:39 | CT ---
EXAMINATION TYPE: CT abdomen pelvis w con DATE OF EXAM: 05/16/2021 COMPARISON: None HISTORY: LLQ pain CT DLP: 1110.6 mGycm Automated exposure control for dose reduction was used. CONTRAST: Performed with IV Contrast, patient injected with 100 mL of Isovue 300. Images obtained from the diaphragm to the floor the pelvis with IV contrast. Lung bases are clear. There is no pleural effusion. Heart size is normal. There is no pericardial eff usion. Liver spleen stomach pancreas and bladder appear normal. The bile ducts are not dilated. There is no adrenal mass. Kidneys show satisfactory contrast opacification. There is no hydronephrosi s. Ureters are not dilated. Bladder distends smoothly. Delayed images show normal renal excretion. Th ere is no retroperitoneal adenopathy. Appendix is posterior and appears normal. There is no inguinal hernia. Uterus is anteverted. There is no pelvic mass. There is no free fluid in the pelvis. There is no mesenteric edema. There is no ascites or free air. There is no bowel obstruction. The lum bar vertebrae have normal spacing and alignment. Posterior elements are intact. There is no compressi on fracture. The bony pelvis is intact. The hip joints are intact. IMPRESSION: Negative CT scan abdomen and pelvis. Normal appendix.
[2021-05-16] MEDS ORDERED: KETOROLAC 15 MG/ML 1 ML VIAL IVP STA (01:58)
[2021-05-16] MEDS ORDERED: DIPHENOX-ATROP 2.5-0.025 MG 1 EACH TAB PO STA (01:58)
[2021-05-16] MEDS ORDERED: PROCHLORPERAZINE INJ 10 MG/2 ML VIAL IVP STA (01:58)
[2021-05-16] MEDS ORDERED: DEXAMETHASONE SOD PHOSPHATE 10 MG/ML 1 ML VIAL IVP STA (01:58)
[2021-05-16] MEDS ORDERED: ONDANSETRON 4 MG ODT STARTER PACK 2 TAB BTL PO STA (01:59)
[2021-05-16] MEDS ORDERED: traMADol 50 MG STARTER PACK 3 TAB BTL PO STA (01:59)
[2021-05-16] MEDS ORDERED: IBUPROFEN 600 MG STARTER PACK 4 TAB BTL PO STA (01:59)
[2021-05-16] MEDS ORDERED: DIPHENOX-ATROP STARTER PACK 8 TAB BTL PO STA (01:59)
[2021-05-16 02:41] LABS: C Reactive Protein 3.1 mg/dL (<1.0)
[2021-05-16 02:42] VITALS: BP 104/53; PULSE 67; RESP 15; TEMP 98
== END 2021-05-16 02:40 | disposition home or self-care (01) ==
LOC: EC 23:07
DX: K52.9 Noninfective gastroenteritis and colitis, unspecified (principal); J45.909 Unspecified asthma, uncomplicated; Z87.891 Personal history of nicotine dependence
CPT/HCPCS: 36415; 80053; 82150; 83615; 83690; 85025; 86140; 81001; 81025; 87086; 74177; 99284; 96374; 96375; 96361; J2270; J0780; J1100; J2405; J1885; S0119; Q9967

== ENCOUNTER 2022-03-19 17:05 | Outpatient (CLI) | payer OTHER ==
[2022-03-19 17:44] LABS: Appearance,Urine Clear (Clear); Bilirubin,Urine Negative (Negative); Blood,Urine Negative (Negative); Color,Urine Yellow; Glucose,Urine (UA) Negative (Negative); Ketones,Urine 1+ (Negative); Leukocyte Esterase,Urine Negative (Negative); Nitrite,Urine Negative (Negative); Protein,Urine Trace (Negative); Specific Gravity,Urine 1.019 (1.001-1.035); Urobilinogen,Urine <2.0 mg/dL (<2.0)
[2022-03-19] MEDS ORDERED: LACTATED RINGERS 1,000 ML IV SCH (18:00)
[2022-03-19 19:16] VITALS: BP 108/56; PULSE 84; RESP 16
--- NOTE | 2022-03-20 05:06 | P.MSEPDOC ---
Presenting Problems - Arrival Data Date of Arrival on Unit: 03/19/22 Time of Arrival on Unit: 17:15 Mode of Transport: Ambulatory - Complaint OB-Reason for Admission/Chief Complaint: Acute Nausea/Vomiting Comment: C/O upper abdominal pain, nausea and vomiting since this am. Medical History - Information : 2 Para: 1 Term: 0 : 0 Abortions: Spontaneous or Elective: 0 Number of Living Children: 0 - Gestational Age Gestational Age by JAYLEEN (wks/days): 25 Weeks and 4 Days Review of Systems - Review of Systems Constitutional: No problems Breast: No problems ENT: No problems Cardiovascular: No problems Respiratory: No problems Gastrointestinal: No problems Genitourinary: No problems Musculoskeletal: No problems Neurological: No problems Skin: No problems Vital Signs - Pulse Pulse Oximetery Pulse Rate: 84 Pulse Assessment Method: Pulse Oximetry - Respirations Respiratory Rate: 16 Oxygen Delivery Method: Room Air - Blood Pressure Right Arm Blood Pressure: 108/56 Blood Pressure Mean: 73 Blood Pressure Source: Automatic Cuff Medical Screen Scoring - Assessment - Baby A Baseline FHR: 135 Heart Rate - NICHD Category: Category I (Normal) Physician Notification - Physician Notified Physician Notified Date: 03/19/22 Physician Notified Time: 17:55 Physician: Silvia Hyatt New Order Received: Yes - Notification Comment Comment: Order received for IV initiation and 1Liter Lactated Ringers for IV hydration, discharge after bolus is stopped. Maternal Triage Index - Non-Urgent/Priority 4 Non-Urgent Priority 4: Yes Criteria Met for Priority 4: nausea, vomiting Disposition - Disposition OB Disposition: Discharge to home Discharge Date: 03/19/22 Discharge Time: 18:50 I agree with the RN Medical Screening Exam: Yes Case reviewed; plan agreed upon as documented in EMR&OBIX.: Yes Diagnosis: VOMITING OF , UNSPECIFIED
== END 2022-03-19 18:50 | disposition home or self-care (01) ==
LOC: FBPOP 17:05
PROVIDERS: ATTEND Obstetrics & Gynecology
DX: O26.892 Other specified pregnancy related conditions, second trimester (principal); Z3A.25 25 weeks gestation of pregnancy; R11.10 Vomiting, unspecified
CPT/HCPCS: 96360; 81003; G0463; 99214

== ENCOUNTER 2022-06-28 05:47 | Inpatient (IN) | payer OTHER ==
[2022-06-28] MEDS ORDERED: OXYTOCIN 10 UNIT/ML 1 ML VIAL IM PRN ×2 (05:55→06:30)
[2022-06-28] MEDS ORDERED: AMPICILLIN 2,000 MG in SODIUM CHLORIDE 0.9% 100 ML IVPB STA (05:55)
[2022-06-28] MEDS ORDERED: miSOPROStoL 200 MCG TAB PO PRN ×2 (05:55→06:30)
[2022-06-28] MEDS ORDERED: LIDOCAINE 0.5% (PF) 5 MG/ML (50 ML SDV) SQ PRN (05:55)
[2022-06-28] MEDS ORDERED: TRANEXAMIC ACID IN NACL,ISO-OS 1,000 MG in EMPTY BAG 1 BAG IV PRN ×2 (05:55→06:30)
[2022-06-28] MEDS ORDERED: OXYTOCIN 30 UNITS/500 ML NS 30 UNIT in SALINE 1 500ML.BAG IV SCH ×2 (05:55→07:45)
[2022-06-28] MEDS ORDERED: CARBOPROST TROMETHAMINE 250 MCG/ML 1 ML AMP IM PRN ×2 (05:55→06:30)
[2022-06-28] MEDS ORDERED: METHYLERGONOVINE 0.2 MG/ML 1 ML AMP IM PRN ×2 (05:55→06:30)
[2022-06-28] MEDS ORDERED: TERBUTALINE 1 MG/ML VIAL SQ PRN (05:55)
[2022-06-28] MEDS ORDERED: LACTATED RINGERS 1,000 ML IV SCH (05:55)
[2022-06-28] MEDS ORDERED: LACTATED RINGERS 1,000 ML IV ONE (06:30)
[2022-06-28] MEDS ORDERED: CITRIC ACID-SODIUM CITRATE 15 ML CUP PO ONE (06:30)
--- NOTE | 2022-06-28 06:35 | P.HPOB ---
History of Present Illness H&P Date: 06/28/22 Chief Complaint: Mild polyhydramnios for induction This patient is a pleasant 21-year-old 2 para 1 female estimated date of confinement 06/28/2022 estimated gestational age 40-0/7 weeks who presents to labor and delivery for induction of labor secondary to polyhydramnios. Patient was noted at approximately 25 weeks to have an BREANN of over 25. Patient's been followed with nonstress tests and now presents for delivery. care otherwise has been uncomplicated with the exception of marijuana use. Review of Systems Genitourinary: Reports Menstruation: Reports amenorrhea Past Medical History Past Medical History: Asthma Additional Past Medical History / Comment(s): Scoliosis, PCOS, occasional migraines History of Any Multi-Drug Resistant Organisms: None Reported Past Surgical History: No Surgical Hx Reported Additional Past Surgical History / Comment(s): [place] teeth removal Past Anesthesia/Blood Transfusion Reactions: No Reported Reaction Past Psychological History: No Psychological Hx Reported Smoking Status: Vaper Past Alcohol Use History: None Reported Additional Past Alcohol Use History / Comment(s): Pt reports vaping a few times per day Past Drug Use History: Marijuana - Past Family History Father Family Medical History: Diabetes Mellitus Mother Family Medical History: No Reported History Medications and Allergies Home Medications Medication Instructions Recorded Confirmed Type Vit No.179/Iron/Folic 1 tab PO DAILY 03/19/22 03/19/22 History [ Tablet] Allergies Allergy/AdvReac Type Severity Reaction Status Date / Time No Known Allergies Allergy Verified 06/28/22 05:55 Exam Vital Signs Temp Pulse Resp BP Pulse Ox 06/28/22 05:54 97.5 F L 61 15 120/61 98 Intake and Output 06/27/22 06/27/22 06/28/22 14:59 22:59 06:59 Other: Weight 87.997 kg - OBG Physical Exam Abdomen: bowel sounds normal, no diffuse tenderness, no bruit present, no guarding noted, no hepatomegaly, no splenomegaly, no mass Vulva: both: normal Vagina: normal moisture, no discharge Cervix: no lesion (Cervix is 3 cm dilated vertex presentation), no discharge Uterus: enlarged Results blood work shows she is O positive, rubella immune, RPR nonreactive, hepatitis B negative, HIV nonreactive, group B strep was negative, Glucola was normal, ultrasounds as above. Assessment and Plan Assessment: This is a pleasant 22-year-old 2 para 1 female 40-0/7 weeks with polyhydramnios. Artificial rupture membranes shows meconium-stained fluid and polyhydramnios. Also noted the time of artificial rupture membranes is a hand presentation. I did try to reduce his hand without relief therefore plan now is to proceed with immediate delivery by section. I did discuss this with the patient and her family and they understand the need to proceed with delivery by this route. She also understands this surgery and risks including risks of infection, bleeding, possible injury bowel, bladder, vessels, and/or other organs. All the patient's questions are answered and a written consent is obtained. (1) 40 weeks gestation of Current Visit: Yes Status: Acute Code(s): Z3A.40 - 40 WEEKS GESTATION OF SNOMED Code(s): 33102323 (2) Polyhydramnios Current Visit: Yes Status: Acute Code(s): O40.9XX0 - POLYHYDRAMNIOS, UNSP TRIMESTER, NOT APPLICABLE OR UNSP SNOMED Code(s): 43672719 (3) Meconium in amniotic fluid Current Visit: Yes Status: Acute Code(s): P96.83 - MECONIUM STAINING SNOMED Code(s): 920942123
[2022-06-28 06:42] LABS: Basophils % (A) 0 %; Eosinophils # (A) 0.1 k/uL (0-0.7); Eosinophils % (A) 3 %; HCT 31.5 % (34.0-46.0); HGB 10.4 gm/dL (11.4-16.0); Lymphocytes # (A) 1.4 k/uL (1.0-4.8); Lymphocytes % (A) 26 %; MCH 27.1 pg (25.0-35.0); MCHC 32.9 g/dL (31.0-37.0); MCV 82.3 fL (80.0-100.0); Mean Platelet Volume 7.9; Monocytes # (A) 0.4 k/uL (0-1.0); Monocytes % (A) 6 %; Neutrophils # (A) 3.5 k/uL (1.3-7.7); Neutrophils % (A) 62 %; Platelet Count 318 k/uL (150-450); RBC 3.83 m/uL (3.80-5.40); RDW 14.2 % (11.5-15.5); WBC 5.7 k/uL (3.8-10.6)
[2022-06-28] MEDS: LACTATED RINGERS 1,000 ML IV SCH ×2 (06:46→19:58)
[2022-06-28] MEDS ORDERED: PHENYLEPHRINE-0.9% NACL SYG 1,000 MCG/10 ML SYRINGE ONE (06:53)
[2022-06-28] MEDS ORDERED: DEXAMETHASONE SOD PHOSPHATE 4 MG/ML 1 ML VIAL ONE (06:53)
[2022-06-28] MEDS ORDERED: OXYTOCIN 30 UNITS/500 ML NS BAG IV ONE (06:53)
[2022-06-28] MEDS ORDERED: MORPHINE SULFATE (PF) 0.3 MG/0.3 ML SYR ONE (06:53)
[2022-06-28] MEDS ORDERED: KETOROLAC 15 MG/ML 1 ML VIAL ONE (06:53)
[2022-06-28] MEDS ORDERED: NALBUPHINE 10 MG/ML (10 ML MDV) ONE (06:53)
[2022-06-28] MEDS ORDERED: HYDROmorphone 0.5 MG/0.5 ML SYRINGE IVP PRN (07:31)
[2022-06-28] MEDS ORDERED: diphenhydrAMINE 50 MG/ML 1 ML VIAL IVP PRN ×2 (07:31→07:43)
[2022-06-28] MEDS ORDERED: NALOXONE 0.4 MG/ML 1 ML VIAL IV PRN (07:31)
[2022-06-28] MEDS ORDERED: ONDANSETRON 4 MG/2 ML VIAL IVP PRN (07:31)
[2022-06-28] MEDS ORDERED: KETOROLAC 15 MG/ML 1 ML VIAL IVP PRN (07:31)
[2022-06-28 07:42] LABS: Amphetamine Screen,Urine Not Detected (NotDetected); Barbiturate Screen,Urine Not Detected (NotDetected); Benzodiazepines Screen,Urine Not Detected (NotDetected); Cocaine Screen,Urine Not Detected (NotDetected); Methadone Screen, Urine Not Detected (NotDetected); Opiate Screen,Urine Not Detected (NotDetected); Oxycodone Screen, Urine Not Detected (NotDetected); Phencyclidine Screen,Urine Not Detected (NotDetected); Tricyclic Antidepressant,Urine Not Detected (NotDetected); Urn Cannabinoid Scrn Detected (NotDetected)
[2022-06-28] MEDS ORDERED: SIMETHICONE 80 MG CHEWABLE PO PRN (07:43)
[2022-06-28] MEDS ORDERED: diphenhydrAMINE 25 MG CAP PO PRN (07:43)
[2022-06-28] MEDS ORDERED: METOCLOPRAMIDE 5 MG/ML 2 ML VIAL IVP PRN (07:43)
--- NOTE | 2022-06-28 07:51 | P.OP ---
Date of Procedure: 06/28/22 Preoperative Diagnosis: #1: 40-0/7 week intrauterine . #2: Polyhydramnios. #3: Hand presentation #4: Mild meconium-stained fluid Postoperative Diagnosis: Same Procedure(s) Performed: Primary low transverse section Anesthesia: spinal Surgeon: Julio Colon Air Traffic Supervisor #1: Kaylah Clancy Estimated Blood Loss (ml): 500 Pathology: other (Placenta) Condition: stable Disposition: floor Indications for Procedure: Please see dictated H&P for intimate details of this patient's admission. Brief summary this is a pleasant 21-year-old 2 para 1 female 40-0/7 weeks gestation admitted to labor and delivery for induction at 40 weeks due to polyhydramnios. Patient is artificial rupture membranes for a large amount of meconium-stained fluid. This time the hand does present after artificial rupture membranes. Attempts at reduction does not work and therefore I recommend she proceed with immediate section for delivery. Patient understands this procedure and risks and risks of infection, bleeding, possible injury bowel, bladder, vessels, and other organs. All the patient's questions are answered and a written consent is obtained. Operative Findings: This is a vigorous viable male infant Apgars 9 and 9 delivery time was 0714 hours. Patient had a hand presenting posterior to the head. Description of Procedure: This patient has a [place] catheter placed to straight drain. She is subsequently taken to the operating room where she sat up and spinal anesthetic is administered without incident. With adequate level of anesthesia, she has abdominal prep and drape. Scalpels and taken and a Pfannenstiel skin incision is made. A second scalpel is taken down the fascia the fascia scored with a knife. Fascial incision extended bilaterally using the Bernstein scissors. Fascia is then dissected off the rectus muscles sharply. Rectus muscles are the peritoneum was identified and entered sharply. Peritoneal incision extended superior and inferior without difficulty. Bladder blade is then placed. Bladder peritoneum was then taken sharply off the lower uterine segment. Scalpels then taken and a low transverse uterine incision is then made. Using a hemostat I enter the uterine cavity bluntly and there is loss of a copious amount of meconium-stained fluid. This incision extended bluntly. Infant's head is then delivered through the incision with fundal pressure. Mouth and nares are bulb suctioned. There is a hand posteriorly to the head. With this done we then have deliver the rest of the infant's body. This is a vigorous viable male Apgars are 0714 hours. Infant has spontaneous respiration and good cry and grossly appears normal. After delivery of the infant the umbilical cord is doubly clamped and cut appears to be trivascular. The placenta is then manually extracted intact. The uterus is externalized uterine incision demarcated with Hernandez clamps. Uterine incision is then closed using 0 Vicryl running locked fashion in 2 layers. The bladder peritoneum was then reapproximated using a 3-0 Vicryl. Excellent hemostasis is noted. Excess fluid is removed from the abdomen and pelvis. Uterus, tubes, ovaries appear normal for term gestation. Uterus placed back into the abdomen. Parietal peritoneum was then closed using 0 Vicryl running fashion. Rectus muscles are reapproximated in 0 Vicryl interrupted fashion. Fascia is then closed using 0 PDS. Fascial incision is intact and hemostatic. Subcutaneous tissues and closed using 3-0 Vicryl. Skin is and closed using nadege. All counts are correct 3. No complications. and mother are taken the birthing suite in satisfactory condition.
[2022-06-28] MEDS: SENNOSIDES-DOCUSATE SODIUM 1 EACH TAB PO SCH ×2 (19:57→23:58)
[2022-06-28] MEDS: ACETAMINOPHEN TAB 500 MG TAB PO SCH ×2 (19:57→23:58)
[2022-06-28] MEDS: IBUPROFEN 600 MG TAB PO SCH (19:58)
[2022-06-28] MEDS: AMPICILLIN 1,000 MG in SODIUM CHLORIDE 0.9% 50 ML IVPB SCH (22:14)
[2022-06-29] MEDS: LACTATED RINGERS 1,000 ML IV SCH (00:02)
[2022-06-29] MEDS: IBUPROFEN 600 MG TAB PO SCH ×4 (03:18→18:55)
[2022-06-29] MEDS: ACETAMINOPHEN TAB 500 MG TAB PO SCH ×5 (03:28→20:49)
--- NOTE | 2022-06-29 06:41 | P.PNOBGPC ---
Subjective - Subjective Patient reports: Reports appetite normal, Reports voiding normally, Reports pain well controlled, Reports ambulating normally : doing well Objective - Vital Signs Latest vital signs: Vital Signs Temp Pulse Resp BP Pulse Ox 06/29/22 06:00 16 06/29/22 03:30 98.1 F 53 L 18 110/68 97 06/29/22 02:00 16 06/29/22 00:00 98.1 F 59 L 16 118/72 100 06/28/22 22:00 16 06/28/22 20:00 98.9 F 51 L 18 111/68 06/28/22 18:00 40 H 06/28/22 16:19 97.8 F 58 L 16 104/63 06/28/22 16:00 98 06/28/22 14:00 16 98 06/28/22 13:10 52 L 06/28/22 12:00 16 06/28/22 11:57 97.6 F 51 L 16 109/66 99 06/28/22 10:31 16 06/28/22 09:54 54 L 16 114/72 98 06/28/22 09:24 59 L 16 109/71 98 06/28/22 08:52 54 L 16 104/63 98 06/28/22 08:24 52 L 16 106/61 96 06/28/22 08:15 59 L 16 107/61 100 06/28/22 08:00 97.0 F L 59 L 16 107/57 98 06/28/22 07:45 97.0 F L 76 16 105/60 98 Intake and Output 06/28/22 06/28/22 06/29/22 14:59 22:59 06:59 Output Total 1304 600 550 Balance -1304 -600 -550 Output: Urine 900 500 550 Uretheral ([place]) 400 Emesis 302 100 Output, Quantitative 102 Blood Loss Other: # Voids 1 - Exam Lungs: bilateral: normal Chest: Normal S1, Normal S2 Extremities: Present: normal Abdomen: Present: normal appearance, soft. Absent: distention, tenderness Incision: Present: normal, dry, intact Uterus: Present: normal, firm - Labs Labs: Abnormal Lab Results - Last 24 Hours (Table) 06/28/22 06/28/22 Range/Units 05:58 06:45 Hgb 10.4 L (11.4-16.0) gm/dL Hct 31.5 L (34.0-46.0) % U Marijuana (THC) Screen Detected H (NotDetected) Assessment and Plan Assessment: Postoperative day #1. Patient is resting without complaints. Vital signs are stable she's afebrile. Uterus is firm nontender and her incision is intact and dry. My impression this is a normal postoperative course. Plan is to check a CBC, encourage ambulation, allow the patient to shower, continue routine postoperative care. (1) 40 weeks gestation of Current Visit: Yes Status: Acute Code(s): Z3A.40 - 40 WEEKS GESTATION OF SNOMED Code(s): 87440107 (2) Polyhydramnios Current Visit: Yes Status: Acute Code(s): O40.9XX0 - POLYHYDRAMNIOS, UNSP TRIMESTER, NOT APPLICABLE OR UNSP SNOMED Code(s): 67741474 (3) Meconium in amniotic fluid Current Visit: Yes Status: Acute Code(s): P96.83 - MECONIUM STAINING SNOMED Code(s): 297218437
--- NOTE | 2022-06-29 06:41 | P.PN ---
Progress Note - Text Progress Note Date: 06/29/22 Patient doing well. Ambulating w/o paresthesia or weakness. Denies headache. Pruritis controlled. Pain controlled. Back - spinal site c/d POD#1 s/p w/ spinal duramorph - continue current regimen
[2022-06-29] MEDS: SENNOSIDES-DOCUSATE SODIUM 1 EACH TAB PO SCH ×2 (08:20→20:49)
[2022-06-29 08:31] LABS: Basophils % (A) 0 %; Eosinophils # (A) 0.1 k/uL (0-0.7); Eosinophils % (A) 1 %; HCT 24.1 % (34.0-46.0); Lymphocytes # (A) 1.8 k/uL (1.0-4.8); Lymphocytes % (A) 28 %; MCH 26.4 pg (25.0-35.0); MCHC 32.5 g/dL (31.0-37.0); MCV 81.4 fL (80.0-100.0); Mean Platelet Volume 8.1; Monocytes # (A) 0.3 k/uL (0-1.0); Monocytes % (A) 5 %; Neutrophils # (A) 3.9 k/uL (1.3-7.7); Neutrophils % (A) 63 %; Platelet Count 277 k/uL (150-450); RBC 2.96 m/uL (3.80-5.40); RDW 14.3 % (11.5-15.5); WBC 6.3 k/uL (3.8-10.6)
[2022-06-29 08:45] LABS: HGB 7.8 gm/dL (11.4-16.0)
[2022-06-30] MEDS: IBUPROFEN 600 MG TAB PO SCH ×4 (00:56→14:59)
--- NOTE | 2022-06-30 06:31 | P.PNOBGPC ---
Subjective - Subjective Patient reports: Reports appetite normal, Reports voiding normally, Reports pain well controlled, Reports ambulating normally : doing well Objective - Vital Signs Latest vital signs: Vital Signs Temp Pulse Resp BP Pulse Ox 06/30/22 00:00 98.8 F 77 18 108/71 06/29/22 15:57 97.8 F 54 L 12 103/68 100 06/29/22 12:09 97.8 F 64 12 103/65 06/29/22 07:58 99.0 F 55 L 18 109/69 100 Intake and Output 06/29/22 06/29/22 06/30/22 14:59 22:59 06:59 Intake Total 500 Balance 500 Intake: Oral 500 - Exam Lungs: bilateral: normal Chest: Normal S1, Normal S2 Extremities: Present: normal Abdomen: Present: normal appearance, soft. Absent: distention, tenderness Incision: Present: normal, dry, intact Uterus: Present: normal, firm - Labs Labs: Abnormal Lab Results - Last 24 Hours (Table) 06/29/22 Range/Units 07:36 RBC 2.96 L (3.80-5.40) m/uL Hgb 7.8 L D (11.4-16.0) gm/dL Hct 24.1 L (34.0-46.0) % Assessment and Plan Assessment: Postoperative day #2. Patient is resting without complaints and wishes to go home. Vital signs are stable she's afebrile. Uterus is firm nontender and her incision is intact and dry. Hemoglobin yesterday was 7.8 it was 10.8 prior to delivery. She is asymptomatic. I did start her on some iron therapy. Plan today is to continue routine care and discharge home later. (1) 40 weeks gestation of Current Visit: Yes Status: Acute Code(s): Z3A.40 - 40 WEEKS GESTATION OF SNOMED Code(s): 46919352 (2) Polyhydramnios Current Visit: Yes Status: Acute Code(s): O40.9XX0 - POLYHYDRAMNIOS, UNSP TRIMESTER, NOT APPLICABLE OR UNSP SNOMED Code(s): 22224529 (3) Meconium in amniotic fluid Current Visit: Yes Status: Acute Code(s): P96.83 - MECONIUM STAINING SNOMED Code(s): 332857069
--- NOTE | 2022-06-30 06:39 | P.DS ---
Providers Date of admission: 06/28/22 05:47 Expected date of discharge: 06/30/22 Attending physician: Julio Colon Primary care physician: Omer Ortega - Discharge Diagnosis(es) (1) 40 weeks gestation of Current Visit: Yes Status: Acute (2) Polyhydramnios Current Visit: Yes Status: Acute (3) Meconium in amniotic fluid Current Visit: Yes Status: Acute Hospital Course: Please see dictated H&P for intimate details of this patient's admission. Brief summary this is a pleasant 21-year-old 2 para 1 female 40-0/7 weeks gestation admitted to labor and delivery for induction of labor secondary to po lyhydramnios. Patient is admitted and she is found to have a hand presentation upon induction. At this time she undergoes a primary low transverse section for viable male . Please see dictated operative note. Postoperative patient does well. She does have some chronic anemia started on some iron therapy. Patient on postoperative #2 tolerating regular diet, urinating, ambulating difficulty and felt to be stable for discharge home follow up with me in 1 week. Procedures: Primary low transverse section Patient Condition at Discharge: Good Plan - Discharge Summary New Discharge Prescriptions: New Ibuprofen [Motrin] 600 mg PO Q6H #40 tab oxyCODONE HCL [OxyIR] 5 mg PO Q4HR PRN #18 tab PRN Reason: Pain Scale 4 - 6 Ferrous Sulfate [Iron (65 MG Elemental)] 325 mg PO BID-W/MEALS #60 tab No Action Vit No.179/Iron/Folic [ Tablet] 1 tab PO DAILY Discharge Medication List Vit No.179/Iron/Folic [ Tablet] 1 tab PO DAILY 03/19/22 [History] Ferrous Sulfate [Iron (65 MG Elemental)] 325 mg PO BID-W/MEALS #60 tab 06/30/22 [Rx] Ibuprofen [Motrin] 600 mg PO Q6H #40 tab 06/30/22 [Rx] oxyCODONE HCL [OxyIR] 5 mg PO Q4HR PRN #18 tab 06/30/22 [Rx] Follow up Appointment(s)/Referral(s): Julio Colon MD [STAFF PHYSICIAN] - 07/09/22 1:30 pm (Please see me also for a visit on 08/10/22 @10:30Am) Patient Instructions/Handouts: (DC), Iron Rich Diet (DC), Iron Deficiency Anemia (GEN) Activity/Diet/Wound Care/Special Instructions: No heavy lifting or strenuous activity for 6 weeks. Please call if any fever, chills, excessive vaginal bleeding, and/or abdominal pain. Discharge Disposition: HOME SELF-CARE
[2022-06-30] MEDS ORDERED: FERROUS SULFATE 325 MG TAB PO SCH (07:30)
[2022-06-30] MEDS: SENNOSIDES-DOCUSATE SODIUM 1 EACH TAB PO SCH (09:03)
[2022-06-30] MEDS: ACETAMINOPHEN TAB 500 MG TAB PO SCH (11:57)
[2022-06-30 15:53] VITALS: BP 114/76; PULSE 60; RESP 16; TEMP 98.5
== END 2022-06-30 15:54 | disposition home or self-care (01) | DRG 540 ==
LOC: 4FBP 05:47
PROVIDERS: ADMIT Obstetrics & Gynecology; ATTEND Obstetrics & Gynecology
PROC: 3E033VJ Introduction of Other Hormone into Peripheral Vein, Percutaneous Approach (ICD-10-PCS; 2022-06-28)
PROC: 10907ZC Drainage of Amniotic Fluid, Therapeutic from Products of Conception, Via Natural or Artificial Opening (ICD-10-PCS; 2022-06-28)
PROC: 3E0DXGC Introduction of Other Therapeutic Substance into Mouth and Pharynx, External Approach (ICD-10-PCS; 2022-06-28)
PROC: 10D00Z1 Extraction of Products of Conception, Low, Open Approach (ICD-10-PCS; principal; 2022-06-28 07:00)
DX: O40.3XX0 Polyhydramnios, third trimester, not applicable or unspecified (principal); O99.323 Drug use complicating pregnancy, third trimester; F12.90 Cannabis use, unspecified, uncomplicated; Z37.0 Single live birth; Z3A.40 40 weeks gestation of pregnancy; Z28.310 Unvaccinated for COVID-19; E28.2 Polycystic ovarian syndrome; O99.283 Endocrine, nutritional and metabolic diseases complicating pregnancy, third trimester; O77.0 Labor and delivery complicated by meconium in amniotic fluid; O32.2XX0 Maternal care for transverse and oblique lie, not applicable or unspecified; D64.9 Anemia, unspecified; O99.02 Anemia complicating childbirth; O99.52 Diseases of the respiratory system complicating childbirth; J45.909 Unspecified asthma, uncomplicated; O99.891 Other specified diseases and conditions complicating pregnancy; O99.334 Smoking (tobacco) complicating childbirth; F17.290 Nicotine dependence, other tobacco product, uncomplicated; L29.9 Pruritus, unspecified; O99.73 Diseases of the skin and subcutaneous tissue complicating the puerperium; M41.9 Scoliosis, unspecified; Z79.899 Other long term (current) drug therapy
CPT/HCPCS: 80306; 85025; 86850; 86900; 86901

== ENCOUNTER → 2023-10-13 | Outpatient (CLI) | payer OTHER ==
--- NOTE | 2023-10-14 08:00 | US ---
EXAMINATION TYPE: US transvaginal DATE OF EXAM: 10/13/2023 COMPARISON: NONE CLINICAL INDICATION: Female, 23 years old with history of R10.2 PELVIC AND PERINEAL PAIN; pelvic pain ongoing for months, PCOS, 1 TECHNIQUE: TV. Transvaginal sonographic images Date of LMP: early August - very irregular EXAM MEASUREMENTS: Uterus: 6.4 x 4.8 x 4.4 cm Endometrial Stripe: 0.8 cm Right Ovary: 5.3 x 3.1 x 1.7 cm Left Ovary: 4.4 x 1.9 x 1.7 cm 1. Uterus: Retroverted wnl 2. Endometrium: wnl 3. Right Ovary: string of pearls follicles - adjacent free fluid may represent recent cyst rupture 4. Left Ovary: string of pearls follicles 5. Bilateral Adnexa: free fluid around right ovary 6. Posterior cul-de-sac: free fluid IMPRESSION: 1. Multiple follicular cysts noted bilaterally. Possible ruptured cyst adjacent to the right ovary.
== END | disposition home or self-care (01) ==
LOC: RADUSWWP 14:31
PROVIDERS: ATTEND Family Medicine
DX: E28.2 Polycystic ovarian syndrome (principal); R10.2 Pelvic and perineal pain
CPT/HCPCS: 76830

== ENCOUNTER 2024-01-20 21:29 | Emergency (ER) | payer SELFPAY ==
[2024-01-20 21:33] VITALS: TEMP 99.2
--- NOTE | 2024-01-20 22:07 | ED ---
Headache HPI - General Chief Complaint: Headache Stated Complaint: Migraine Time Seen by Provider: 01/20/24 21:49 Source: RN notes reviewed Mode of arrival: ambulatory - History of Present Illness Initial Comments: 23-year-old female with history of migraines presenting to the ER with chief complaint of headache x 1 week. Patient describes headache as bandlike throughout her entire head. States yesterday she also began to have nausea and vomiting. States she has been unable to keep anything down today due to the nausea. She states Tylenol and ibuprofen relieves symptoms for about 4 hours, then symptoms returned. She does have a history of migraines which feels simila r but states they have never lasted this long. Denies fever, chills, chest pain, shortness of breath, abdominal pain. States she is currently on her menstrual period. Denies blood thinners. Denies trauma or injury. - Related Data Home Medications Medication Instructions Recorded Confirmed Vit No.179/Iron/Folic 1 tab PO DAILY 03/19/22 03/19/22 [ Tablet] Previous Rx's Medication Instructions Recorded Ferrous Sulfate [Iron (65 MG 325 mg PO BID-W/MEALS #60 tab 06/30/22 Elemental)] Ibuprofen [Motrin] 600 mg PO Q6H #40 tab 06/30/22 oxyCODONE HCL [OxyIR] 5 mg PO Q4HR PRN #18 tab 06/30/22 Allergies Allergy/AdvReac Type Severity Reaction Status Date / Time No Known Allergies Allergy Verified 01/20/24 21:33 Review of Systems ROS Statement: Those systems with pertinent positive or pertinent negative responses have been documented in the HPI. ROS Other: All systems not noted in ROS Statement are negative. Past Medical History Past Medical History: Asthma Additional Past Medical History / Comment(s): Scoliosis, PCOS, occasional migraines History of Any Multi-Drug Resistant Organisms: None Reported Past Surgical History: No Surgical Hx Reported Additional Past Surgical History / Comment(s): [place] teeth removal Past Anesthesia/Blood Transfusion Reactions: No Reported Reaction Past Psychological History: No Psychological Hx Reported Smoking Status: Vaper Past Alcohol Use History: None Reported Past Drug Use History: Marijuana - Past Family History Father Family Medical History: Diabetes Mellitus Mother Family Medical History: No Reported History General Exam General appearance: alert, in no apparent distress Head exam: Present: atraumatic, normocephalic, normal inspection Eye exam: Present: normal appearance, PERRL, EOMI. Absent: scleral icterus, conjunctival injection, periorbital swelling ENT exam: Present: normal exam, mucous membranes moist Neck exam: Present: normal inspection. Absent: tenderness, meningismus, lymphadenopathy Respiratory exam: Present: normal lung sounds bilaterally. Absent: respiratory distress, wheezes, rales, rhonchi, stridor Cardiovascular Exam: Present: regular rate, normal rhythm, normal heart sounds. Absent: systolic murmur, diastolic murmur, rubs, gallop, clicks GI/Abdominal exam: Present: soft, normal bowel sounds. Absent: distended, tenderness, guarding, rebound, rigid Neurological exam: Present: alert, oriented X3, CN II-XII intact Psychiatric exam: Present: normal affect, normal mood Skin exam: Present: warm, dry, intact, normal color. Absent: rash Course Vital Signs 01/20/24 21:31 Temperature 99.2 F Pulse Rate 64 Respiratory 18 Rate Blood Pressure 106/63 O2 Sat by Pulse 100 Oximetry Medical Decision Making - Medical Decision Making Was pt. sent in by a medical professional or institution (, PA, VEGETABLE FARM WORKER, urgent care, hospital, or correction...) When possible be specific @ -No Did you speak to anyone other than the patient for history (EMS, parent, family, police, friend...)? What history was obtained from this source @ -No Did you review nursing and triage notes (agree or disagree)? Why? @ -I reviewed and agree with nursing and triage notes Were old charts reviewed (outside hosp., previous admission, EMS record, old EKG, old radiological studies, urgent care reports/EKG's, correction records)? Report findings @ -No old charts were reviewed Differential Diagnosis (chest pain, altered mental status, abdominal pain women, abdominal pain men, vaginal bleeding, weakness, fever, dyspnea, syncope, headache, dizziness, GI bleed, back pain, seizure, CVA, palpatations, mental health, musculoskeletal)? @ -Differential Headache: Migraine, tension, cluster, carbon monoxide, central venous thrombosis, pension karma temporal arteritis, acute closure glaucoma, intercranial hemorrhage, mastoiditis, sinusitis, head injury, this is not meant to be an all-inclusive list. EKG interpreted by me (3pts min.). @ -None X-rays interpreted by me (1pt min.). @ -None done CT interpreted by me (1pt min.). @ -CT brain reveals no acute intracranial hemorrhage or midline shift. Possible right sided sphenoid sinusitis U/S interpreted by me (1pt. min.). @ -None done What testing was considered but not performed or refused? (CT, X-rays, U/S, labs)? Why? @ -None What meds were considered but not given or refused? Why? @ -None Did you discuss the management of the patient with other professionals (professionals i.e. , PA, VEGETABLE FARM WORKER, lab, RT, psych nurse, social work therapist, home appliance technician, teacher, coastal/harbor defense officer, showcase trimmer)? Give summary @ -No Was smoking cessation discussed for >3mins.? @ -No Was critical care preformed (if so, how long)? @ -No Were there social determinants of health that impacted care today? How? (Homelessness, low income, unemployed, alcoholism, drug addiction, transportation, low edu. Level, literacy, decrease access to med. care, retirement, rehab)? @ -No Was there de-escalation of care discussed even if they declined (Discuss DNR or withdrawal of care, Hospice)? DNR status @ -No What co-morbidities impacted this encounter? (DM, HTN, Smoking, COPD, CAD, Cancer, CVA, ARF, Chemo, Hep., AIDS, mental health diagnosis, sleep apnea, morbid obesity)? @ -None Was patient admitted / discharged? Hospital course, mention meds given and route, prescriptions, significant lab abnormalities, going to OR and other pertinent info. @ -Discharge. This is a 23-year-old female presenting with headache x 1 week with nausea and vomiting. Denies trauma or injury. Vital signs are within acceptable limits. Neuro examination is unremarkable. Patient is provided with IV fluids, analgesics, and antiemetics. Lab work including CBC, CMP unremarkable. Urine negative. CT brain reveals no acute intracranial hemorrhage or midline shift. Discussed negative results with patient. Upon reevaluation, patient states symptoms have mildly improved. Advise close follow-up with PCP next week for reevaluation. Return precautions discussed and patient is agreeable to plan. Case was discussed with my ED attending Dr. Delgado. Patient was discharged with Zofran for symptom control. Undiagnosed new problem with uncertain prognosis? @ -No Drug Therapy requiring intensive monitoring for toxicity (Heparin, Nitro, Insulin, Cardizem)? @ -No Were any procedures done? @ -No Diagnosis/symptom? @ -Headache Acute, or Chronic, or Acute on Chronic? @ -Acute Uncomplicated (without systemic symptoms) or Complicated (systemic symptoms)? @ -Uncomplicated Side effects of treatment? @ -No Exacerbation, Progression, or Severe Exacerbation? @ -No Poses a threat to life or bodily function? How? (Chest pain, USA, SC, pneumonia, PE, COPD, DKA, ARF, appy, cholecystitis, CVA, Diverticulitis, Homicidal, Suicidal, threat to staff... and all critical care pts) @ -No - Lab Data Result diagrams: 01/20/24 22:30 01/20/24 22:30 Lab Results 01/20/24 01/20/24 01/20/24 Range/Units 22:30 22:30 22:30 WBC 6.8 (3.8-10.6) k/uL RBC 4.54 (3.80-5.40) m/uL Hgb 13.0 (11.4-16.0) gm/dL Hct 40.0 (34.0-46.0) % MCV 88.1 (80.0-100.0) fL MCH 28.6 (25.0-35.0) pg MCHC 32.5 (31.0-37.0) g/dL RDW 12.1 (11.5-15.5) % Plt Count 283 (150-450) k/uL MPV 7.3 Neutrophils % 64 % Lymphocytes % 28 % Monocytes % 5 % Eosinophils % 1 % Basophils % 0 % Neutrophils # 4.3 (1.3-7.7) k/uL Lymphocytes # 1.9 (1.0-4.8) k/uL Monocytes # 0.4 (0-1.0) k/uL Eosinophils # 0.0 (0-0.7) k/uL Basophils # 0.0 (0-0.2) k/uL Sodium 140 (137-145) mmol/L Potassium 3.7 (3.5-5.1) mmol/L Chloride 106 (98-107) mmol/L Carbon Dioxide 26 (22-30) mmol/L Anion Gap 8 mmol/L BUN 9 (7-17) mg/dL Creatinine 0.56 (0.52-1.04) mg/dL Est GFR (CKD-EPI)AfAm >90 (>60 ml/min/1.73 sqM) Est GFR (CKD-EPI)NonAf >90 (>60 ml/min/1.73 sqM) Glucose 85 (74-99) mg/dL Calcium 8.8 (8.4-10.2) mg/dL Total Bilirubin 0.6 (0.2-1.3) mg/dL AST 25 (14-36) U/L ALT 26 (4-34) U/L Alkaline Phosphatase 73 (38-126) U/L Total Protein 7.5 (6.3-8.2) g/dL Albumin 4.4 (3.5-5.0) g/dL Urine HCG, Qual Not Detected (Not Detectd) Disposition Clinical Impression: Headache Disposition: HOME SELF-CARE Condition: Stable Instructions (If sedation given, give patient instructions): Acute Headache (ED) Additional Instructions: Take Zofran as needed for nausea. Follow-up with PCP for reevaluation. Please return to the Emergency Department if symptoms worsen or any other concerns. Is patient prescribed a controlled substance at d/c from ED?: No Referrals: Omer Ortega MD [Primary Care Provider] - 1-2 days Time of Disposition: 00:32
[2024-01-20] MEDS: SODIUM CHLORIDE 0.9% 1,000 ML IV STA (22:40)
[2024-01-20] MEDS: KETOROLAC 15 MG/ML 1 ML VIAL IVP STA (22:42)
[2024-01-20] MEDS: diphenhydrAMINE 50 MG/ML 1 ML VIAL IVP STA (22:43)
[2024-01-20] MEDS: METOCLOPRAMIDE 5 MG/ML 2 ML VIAL IVP STA (22:43)
--- NOTE | 2024-01-20 22:55 | CT ---
EXAMINATION TYPE: CT brain wo con DATE OF EXAM: 01/20/2024 COMPARISON: None. HISTORY: Patient states he has had a migraine for [address] DLP: 1109.8 mGycm. Automated Exposure Control for Dose Reduction was Utilized. TECHNIQUE: CT scan of the head is performed without contrast. FINDINGS: There is no acute intracranial hemorrhage, mass effect, or midline shift identified. The ventricles and sulci are within normal limits in size. Palmer-white matter differentiation is maintain ed. Dependent fluid in the right sphenoid sinus. Globes are intact bilaterally. IMPRESSION: No acute intracranial hemorrhage or midline shift is seen. Possible right-sided sphenoid sinusitis. Correlate clinically. [facility], , 01/20/2024 10:53 PM
[2024-01-20 22:59] LABS: Basophils % (A) 0 %; Eosinophils % (A) 1 %; Lymphocytes # (A) 1.9 k/uL (1.0-4.8); Lymphocytes % (A) 28 %; MCH 28.6 pg (25.0-35.0); MCHC 32.5 g/dL (31.0-37.0); MCV 88.1 fL (80.0-100.0); Mean Platelet Volume 7.3; Monocytes # (A) 0.4 k/uL (0-1.0); Monocytes % (A) 5 %; Neutrophils # (A) 4.3 k/uL (1.3-7.7); Neutrophils % (A) 64 %; Platelet Count 283 k/uL (150-450); RBC 4.54 m/uL (3.80-5.40); RDW 12.1 % (11.5-15.5); WBC 6.8 k/uL (3.8-10.6)
[2024-01-20 23:13] LABS: ALT 26 U/L (4-34); AST 25 U/L (14-36); African American GFR (CKD) >90 (>60 ml/min/1.73 sqM); Albumin 4.4 g/dL (3.5-5.0); Alkaline Phosphatase 73 U/L (38-126); Anion Gap 8 mmol/L; Blood Urea Nitrogen 9 mg/dL (7-17); Calcium 8.8 mg/dL (8.4-10.2); Carbon Dioxide 26 mmol/L (22-30); Chloride 106 mmol/L (98-107); Glucose 85 mg/dL (74-99); Non-African American GFR(CKD) >90 (>60 ml/min/1.73 sqM); Potassium 3.7 mmol/L (3.5-5.1); Sodium 140 mmol/L (137-145); Total Bilirubin 0.6 mg/dL (0.2-1.3); Total Protein 7.5 g/dL (6.3-8.2)
[2024-01-21] MEDS: DEXAMETHASONE SOD PHOSPHATE 10 MG/ML 1 ML VIAL IVP STA (00:45)
[2024-01-21] MEDS: ONDANSETRON 4 MG ODT STARTER PACK 2 TAB BTL PO STA (00:45)
[2024-01-21] MEDS: KETOROLAC 15 MG/ML 1 ML VIAL IVP STA (00:46)
[2024-01-21 01:17] VITALS: BP 95/52; PULSE 49; RESP 16
== END 2024-01-21 00:47 | disposition home or self-care (01) ==
LOC: EC 21:29
DX: G43.909 Migraine, unspecified, not intractable, without status migrainosus (principal); F17.290 Nicotine dependence, other tobacco product, uncomplicated
CPT/HCPCS: 36415; 80053; 85025; 81025; 70450; 99284; 96374; 96375 ×3; 96361; 96376; J1200; J1100; J2765; J1885 ×2; S0119